=== PATIENT | female | born 1985 | race Caucasian/White ===

== ENCOUNTER 2018-06-29 06:17 | Inpatient (IN) | payer OTHER ==
[2018-06-29] VITALS (29 sets, daily range): BP systolic 100–152; BP diastolic 62–103; PULSE 65–114; RESP 10–21; Ht 167.6 cm; Wt 72.6 kg
[~2018-06-29] VITALS: Ht 167.6 cm; Wt 72.6 kg
[~2018-06-29 06:17] MED LIST: ACET500C5 PO; CLIN300C10 PO; HYDR-4011 PO; IBUP-1542 PO
[2018-06-29] MEDS ORDERED: POLYMYXIN/BACITRACIN 1L IRRIG ONE ×2 (06:54→11:55)
[2018-06-29] MEDS ORDERED: NEOMYC/POLYMYX/BACIT 30 GM OINT ONE (06:54)
[2018-06-29] MEDS ORDERED: ROPIVACAINE 0.5 % 30 ML VIAL ONE ×2 (06:54→07:33)
[2018-06-29] MEDS ORDERED: BUSP10TA2 PO (07:01)
[2018-06-29] MEDS ORDERED: CYCL10TA7 PO (07:02)
[2018-06-29] MEDS ORDERED: SUGAMMADEX SODIUM 200 MG/2 ML VIAL IV ONE (07:26)
[2018-06-29] MEDS ORDERED: PROPOFOL 20 ML ONE (07:27)
[2018-06-29] MEDS ORDERED: ROCURONIUM 50 MG INJ ONE (07:27)
[2018-06-29] MEDS ORDERED: NEOSTIGMINE 3 MG/3 ML SYRINGE ONE (07:27)
[2018-06-29] MEDS ORDERED: CEFAZOLIN 1 GM INJ ONE (07:27)
[2018-06-29] MEDS ORDERED: GLYCOPYRROLATE 0.4 MG INJ ONE (07:27)
[2018-06-29] MEDS ORDERED: DEXAMETHASONE 4 MG/ML 5 ML INJ ONE (07:30)
[2018-06-29] MEDS ORDERED: MIDAZOLAM 1 MG/ML 2 ML INJ ONE (07:30)
[2018-06-29] MEDS ORDERED: ONDANSETRON 4 MG INJ ONE (07:30)
[2018-06-29] MEDS ORDERED: FENTAnyl 50 MCG/ML VIAL ONE (07:30)
--- NOTE | 2018-06-29 07:33 | PREAC ---
Date/Time of Note Date/Time of Note DATE: 06/29/18 TIME: 07:32 Anesthesia Eval and Record Evaluation Time Pre-Procedure Interview DATE: 06/29/18 TIME: 07:32 Age 32 Sex female NPO: 8 hrs Preoperative diagnosis LEFT ANKLE DISTAL TIBIAL PILON AND FIBULA FRACTURE Planned procedure LEFT ANKLE SHARMILA, ORIF TIBIAL PILON AND FIBULA Past Medical History Past Medical History: Includes Pulm: Asthma Psych: Anxiety Infection(s): Hep C Recreational drugs: Marijuana, Heroin Surgery & Anesthesia Issues No known issue Meds Anticoagulation: No Beta Narcisa within 24 hr: No Reason Beta Narcisa not given: Pt. not on B-Narcisa Reported Medications Cyclobenzaprine Hcl* (Cyclobenzaprine Hcl*) 10 Mg Tablet, 10 MG PO QHS PRN for MUSCLE SPASMS, #60 TAB 06/29/18 Buspirone Hcl* (Buspirone Hcl*) 10 Mg Tab, 10 MG PO BID, TAB 06/29/18 Discontinued Scripts Acetaminophen* (Tylophen*) 500 Mg Capsule, 1 CAP PO Q6H PRN for PAIN AND OR ELEVATED TEMP, #30 CAP Prov:JEANETTE NIETO PA-C 02/02/16 Ibuprofen* (Motrin*) 600 Mg Tab, 600 MG PO Q6, #30 TAB Prov:JEANETTE NIETO PA-C 02/02/16 Ibuprofen* (Motrin*) 600 Mg Tab, 600 MG PO Q6, #20 TAB Prov:LISA QIU PA-C 12/14/15 Clindamycin Hcl* (Clindamycin Hcl*) 300 Mg Capsule, 300 MG PO TID for 10 Days, CAP Prov:LISA QIU PA-C 12/14/15 Hydrocodone/Acetaminophen ([place] 5-325 Tablet) 1 Each Tablet, 1 TAB PO Q6H PRN for PAIN, #5 TAB Prov:TRAVIS DECKER NP 10/30/15 Meds reviewed: Yes Allergies Coded Allergies: No Known Allergy (Unverified , 06/29/18) Allergies Reviewed: Yes Labs/Studies Labs Reviewed: Reviewed by anesthesiologist test: Negative Pre-procedure Exam Airway: Adequate mouth opening, Adequate thyromental dist Mallampati: Mallampati II Teeth: Normal Lung: Normal Heart: Normal ASA Physical Status ASA physical status: 2 Emergency: None Planned Anesthetic General/MAC: ETT Nerve block: Sciatic (left) Planned Pain Management Single shot nerve block, Parenteral pain med Pre-operative Attestations Prior to commencing anesthesia and surgery, the patient was re-evaluated, there was verification of: *The patient's identity *The results of appropriate recent lab work and preoperative vital signs *The above evaluation not changing prior to induction *Anesthetic plan, risk benefits, alternative and complications discussed with patient/family; questions answered; patient/family understands, accepts and wishes to proceed. Ramakrishna Diaz M.D. June 29, 2018 07:33
[2018-06-29] MEDS ORDERED: CEFAZOLIN 1 GM INJ IV SCH (08:00)
[2018-06-29] MEDS ORDERED: HYDROmorphONE 1 MG/ML SYG IV PRN ×2 (08:00→17:00)
[2018-06-29] MEDS: CEFAZOLIN 1 GM/50 ML (PMX) 50 ML IVPB SCH ×2 (08:00→17:03)
[2018-06-29] MEDS ORDERED: ONDANSETRON 4 MG INJ IV PRN ×2 (08:00→09:00)
[2018-06-29] MEDS ORDERED: oxyCODONE 5 MG TAB PO PRN (08:00)
--- NOTE | 2018-06-29 08:00 | HPN ---
Date/Time of Note Date/Time of Note DATE: 06/29/18 TIME: 07:59 Interval H&P Admission Note Pt. seen H&P reviewed: No system changes DC GROVES MD June 29, 2018 07:59
[2018-06-29] MEDS ORDERED: HYDROmorphONE 1 MG/5 ML IV SYRINGE IV PRN ×2 (09:00)
[2018-06-29] MEDS ORDERED: MIDAZOLAM 1 MG/ML 2 ML INJ IV PRN (09:00)
[2018-06-29] MEDS ORDERED: DIPHENHYDRAMINE 50 MG INJ IV PRN (09:00)
[2018-06-29] MEDS ORDERED: hydrALAzine 20 MG INJ IV PRN (09:00)
[2018-06-29] MEDS ORDERED: TRIMETHOBENZAMIDE 100 MG/ML VIAL IM PRN (09:00)
[2018-06-29] MEDS ORDERED: OXYCODONE/ACETAMINOPHEN (5/325) TAB PO PRN ×2 (09:00)
[2018-06-29] MEDS: GABAPENTIN 300 MG CAP PO SCH ×3 (09:00→21:57)
[2018-06-29] MEDS ORDERED: FENTAnyl 50 MCG/ML VIAL IV PRN ×3 (09:00)
[2018-06-29] MEDS ORDERED: EPHEDrine 25 MG/5 ML SYG IV PRN (09:00)
[2018-06-29] MEDS ORDERED: MEPERIDINE 25 MG INJ IV PRN (09:00)
[2018-06-29] MEDS ORDERED: LABETALOL HCL 20MG INJ IV PRN (09:00)
[2018-06-29] MEDS ORDERED: ALBUTEROL 0.083% (NEB) 2.5 MG/3 ML AMP HHN PRN (09:00)
[2018-06-29] MEDS ORDERED: IPRATROPIUM (NEB) 0.5 MG/2.5 ML AMP HHN PRN (09:00)
--- NOTE | 2018-06-29 12:28 | QN ---
Documentation Job number: [id number].... DC GROVES MD June 29, 2018 12:28
--- NOTE | 2018-06-29 12:39 | PAC ---
Date/Time of Note Date/Time of Note DATE: 06/29/18 TIME: 12:39 Post-Anesthesia Notes Post-Anesthesia Note Last documented vital signs Vital Signs Date Temp Pulse Resp B/P (MAP) Pulse Ox O2 O2 Flow FiO2 Time Delivery Rate 06/29/18 98.5 84 18 100/80 98 Room Air 07:29 (87) Activity: WNL Respiratory function: WNL Cardiovascular function: WNL Mental status: Baseline Pain reasonably controlled: Yes Hydration appropriate: Yes Nausea/Vomiting absent: Yes Ramakrishna Diaz M.D. June 29, 2018 12:39
[2018-06-29] MEDS: HYDROmorphONE 1 MG/5 ML IV SYRINGE IV PRN ×3 (13:01→13:14)
--- NOTE | 2018-06-29 14:23 | OPR ---
DATE OF OPERATION: 06/29/2018 PREOPERATIVE DIAGNOSES: 1. Left distal tibial pilon fracture and fibular fracture. 2. Left ankle painful hardware. POSTOPERATIVE DIAGNOSES: 1. Left distal tibial pilon fracture and fibular fracture. 2. Left ankle painful hardware. OPERATION PERFORMED: 1. Left ankle open reduction internal fixation of distal tibial pilon fracture and distal fibular fracture. 2. Application of allograft. 3. Application of incisional wound VAC. 4. Left ankle removal of hardware. SURGEON: Augie Cooper MD HOUSEHOLD WORKER: None. ANESTHESIOLOGIST: Dr. Diaz. ANESTHESIA: General with popliteal and adductor block. TOURNIQUET TIME: Tourniquet time was 84 minutes at 250 mmHg mercury, then brought down for 35 minutes and brought up again for another 74 minutes at 250 mmHg. ESTIMATED BLOOD LOSS: Minimal. TRANSFUSION: None. COMPLICATIONS: None. SPECIMENS: None. IMPLANTS: 1. Arthrex Amnion allograft. 2. Arthrex Flores. 3. Arthrex distal pilon locking plate. 4. [employer]hew EVOS 2.0 mini-frag plate and screws. DRAINS: A Prevena incisional wound VAC Duo 13 cm. PATIENT CONDITION UPON PROCEDURE: Stable. DISPOSITION: To PACU. INDICATIONS: The patient is 32-year-old female who was seen with distal tibial pilon and fibular fracture approximately 4 weeks ago. The patient was indicated for surgery given the displacement of the fracture as well as annabelle-implant fracture pattern. Risk Note: Patient was explained the risks and benefits of surgery and the patient's huslia language including not limited to infection, bleeding, injury to blood vessels, nerves, ligaments or tendons. Risks of anesthesia, deep vein thrombosis and need for reduce future surgery. Patient acknowledged these risk by signing the surgical consent form. PROCEDURE: The patient was met in the preoperative holding area, extremity was marked. Patient had signed consent and confirmed with the correct operative extremity correct procedure. The patient was brought to the operative theater and placed on the operative supine on operative table, given preoperative antibiotics and preoperative anesthesia and flipped into the prone position with all bony prominences well padded. Timeout was taken and all parties room agreed this was the correct patient, extremity and procedure. Tourniquet was brought to 250 mmHg and incision was made over the medial malleolus. The distal medial malleolar screws were removed over the previous plate. Attention was then turned to the posterior lateral ankle were incision was made between the Achilles and the peroneal tendons. All neurovascular structures were identified and protected and then the incision was brought down to the FHL fascia which was identified. The FHL was identified and retracted medially. Fracture pattern was identified and then hematoma and callus was removed. Fracture was then reduced and then a posterior malleolar distal pilon locking plate was then placed with the apex just proximal to the tip of the fracture and then in a buttress like fashion antiglide reduction was attempted and ankle fracture was reduced and shown to be in appropriate position on lateral x-ray. Screws were then placed, both proximally, as well as locking screws distally and shown to be well reduced position both in AP, lateral and oblique fluoroscopy. Wound was irrigated thoroughly and then amniotic membrane was placed over the fracture pattern to assist with fracture healing and wound healing and closed in layers with 2-0 Vicryl, followed by 3-0 Monocryl and 4-0 nylon in a vertical mattress fashion. The medial incision was then closed with a 3-0 running nylon. The patient was then wrapped up and all draping was taken down and patient flipped from prone to supine position and then patient was re-prepped and draped in another timeout was taken. The tourniquet was brought up to 250 mmHg again, after approximately 35 minutes and an incision was made over the medial malleolus brought out over the medial malleolus and brought down to the comminuted fracture pattern. The fracture was quite comminuted over the medial gutter and reduced accordingly and then held in place with K-wires and then a 2- 0 locking plate was then placed over the anterior medial ankle fracture and then fixed proximally and distally. At this time the medial gutter was irrigated thoroughly and cleaned out thoroughly. However, there was a small comminuted fracture noted over the medial talar dome that was irreparable and that was irrigated again thoroughly as well. The remainder of the fracture was reduced, held in place with K-wires. We then tested and protected the ankle with fluoroscopic x-ray with external rotation stress showed no evidence of medial clear space widening. The posterior tibial tendon was then retracted and then 4 K wires were placed over the comminuted fracture piece outside of the skin and plate and screws. The ankle was shown to be be in a well-reduced position both in AP and lateral x-ray. The fibula fracture was shown to be out to excellent length and alignment and rotation. We decided to be treated without any plates and screws at this time. The wound was irrigated thoroughly and then it was closed in layers with 2-0 Vicryl followed by a 3-0 Monocryl and 3-0 nylon in a vertical mattress fashion. A Prevena wound VAC was placed over the medial and lateral incision and then placed in a well-padded short leg splint in neutral position. At the end of the case, all sponge and needle counts were correct. The patient was placed in the PACU in a stable condition with the toes well perfused. Dictated By: AUGIE ROJAS/NTS Conf#: [id number] DID#: [id number] MTDD
[2018-06-29] MEDS ORDERED: HYDROmorphONE 1 MG/ML SYG IV ONE (17:00)
[2018-06-29] MEDS: NICOTINE (14 MG/24 HR) PATCH TRANSDERM SCH (18:14)
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
[2018-06-29] MEDS ORDERED: LORAZEPAM 2 MG INJ IV PRN (19:30)
[2018-06-29] MEDS ORDERED: METHADONE (1 MG/ML 5 ML PO UD SYG) PO SCH (19:30)
[2018-06-29] MEDS ORDERED: HYDROmorphONE 0.2 MG/ML PCA IV SCH (19:30)
[2018-06-29] MEDS: HYDROmorphONE 2 MG/ML SYG IV PRN (20:27)
[2018-06-29] MEDS: QUETIAPINE 25 MG TAB PO SCH (21:00)
[2018-06-30] MEDS: CEFAZOLIN 1 GM/50 ML (PMX) 50 ML IVPB SCH ×4 (00:26→23:55)
[2018-06-30 00:31] VITALS: BP 89/49; PULSE 96; RESP 18
[2018-06-30] MEDS: METHADONE (1 MG/ML 5 ML PO UD SYG) PO SCH ×4 (05:54→23:55)
[2018-06-30] MEDS: HYDROmorphONE 2 MG/ML SYG IV PRN ×3 (06:03→11:57)
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
[2018-06-30 08:30] VITALS: BP 100/57; PULSE 95; RESP 18
[2018-06-30] MEDS: MULTIVITAMINS 10 ML, THIAMINE 100 MG, FOLIC ACID 1 MG in SOD CHLORIDE 0.9% 1,000 ML IVPB SCH (08:59)
[2018-06-30] MEDS: GABAPENTIN 300 MG CAP PO SCH ×3 (08:59→22:27)
[2018-06-30] MEDS: QUETIAPINE 25 MG TAB PO SCH ×2 (09:00→22:27)
[2018-06-30] MEDS: NICOTINE (14 MG/24 HR) PATCH TRANSDERM SCH (09:01)
--- NOTE | 2018-06-30 12:14 | CONS ---
Assessment/Plan Assessment/Plan Hospital Course (Demo Recall) Summary Assessment and Plan: Assessment: Hepatitis C, untreated Polysubstance abuse (Meth, Heroin) Left distal tibial pilon fracture and fibular fracture -status post left ankle ORIF 06/29/18 Plan: Hepatitis RNA/genotype CBC, CMP, INR, abd us Patient will need to f/u after discharge to begin treatment for Hepatitis C likely [place] 8-12 weeks pending on cirrhosis Patient being followed by Dr. Chavez for pain management Patient seen in collaboration with Dr. Ochoa CC: RUBY OCHOA MD ; Consultation Date/Type/Reason Admit Date/Time June 29, 2018 at 08:00 Date of Consultation: June 30, 2018 Type of Consult GI Reason for Consultation Hepatitis C Date/Time of Note DATE: 06/30/18 TIME: 11:50 Hx of Present Illness This is a 32-year-old female with past medical history of hepatitis C, untreated, polysubstance abuse i.e. methamphetamine/heroin. Who was admitted for elective left ankle open reduction and internal fixation as well as removal of prior hardware. Status post surgery 06/29/2018. Has been consulted to address hepatitis C. Patient notes her also has hepatitis C she previously had a plan of action for treatment however did not follow through and at this time remains treatment esme. Hepatitis antibody is positive we will additionally order RNA and serology as well as abdominal ultrasound. Further work-up will be needed as an outpatient including FibroScan to determine type and length of medication treatment. Review of Systems: [A 12 system, review was conducted and is negative except as noted in the HPI or here.] Past Medical History Medical History: no pertinent history, other (Hepatitis C) Home Meds Reported Medications Cyclobenzaprine Hcl* (Cyclobenzaprine Hcl*) 10 Mg Tablet, 10 MG PO QHS PRN for MUSCLE SPASMS, #60 TAB 06/29/18 Buspirone Hcl* (Buspirone Hcl*) 10 Mg Tab, 10 MG PO BID, TAB 06/29/18 Discontinued Scripts Acetaminophen* (Tylophen*) 500 Mg Capsule, 1 CAP PO Q6H PRN for PAIN AND OR ELEVATED TEMP, #30 CAP Prov:JEANETTE NIETO PA-C 02/02/16 Ibuprofen* (Motrin*) 600 Mg Tab, 600 MG PO Q6, #30 TAB Prov:PROUSE,JEANETTE M. PA-C 02/02/16 Ibuprofen* (Motrin*) 600 Mg Tab, 600 MG PO Q6, #20 TAB Prov:LISA QIU PA-C 12/14/15 Clindamycin Hcl* (Clindamycin Hcl*) 300 Mg Capsule, 300 MG PO TID for 10 Days, CAP Prov:LISA QIU PA-C 12/14/15 Hydrocodone/Acetaminophen ([place] 5-325 Tablet) 1 Each Tablet, 1 TAB PO Q6H PRN for PAIN, #5 TAB Prov:TRAVIS DECKER NP 10/30/15 Medications Current Medications Ondansetron HCl (Zofran Inj) 4 mg Q4H PRN IV NAUSEA AND/OR VOMITING; Start 06/29/18 at 08:00 Diphenhydramine HCl (Benadryl) 25 mg Q4H PRN PO ITCHING; Start 06/29/18 at 08:00 Rivaroxaban (Xarelto) 10 mg WITH DINNER PO ; Start 06/30/18 at 17:55 Acetaminophen (Tylenol Tab) 325 mg Q4H PRN PO MILD PAIN(1-3)OR ELEVATED TEMP; Start 06/29/18 at 08:00 Gabapentin (Neurontin) 600 mg TID PO Last administered on 06/30/18at 08:59; Admin Dose 600 MG; Start 06/29/18 at 09:00 Cefazolin Sodium 50 ml @ 100 mls/hr Q8H IVPB Last administered on 06/30/18at 08:12; Admin Dose 100 MLS/HR; Start 06/29/18 at 08:00; Stop 07/01/18 at 00:29 Nicotine (Nicoderm 14 Mg/ 24hr) 1 patch DAILY TRANSDERM Last administered on 06/30/18at 09:01; Admin Dose 1 PATCH; Start 06/29/18 at 18:00 Hydromorphone HCl (Dilaudid REVOLVING FIELD ASSEMBLER) 0.3 MG/HR CONTINUOUS RATE ... Q4PCA IV Last administered on 06/29/18at 22:10; Admin Dose 6 MG; Start 06/29/18 at 19:30 Hydromorphone HCl (Dilaudid) 2 mg Q3H PRN IV SEVERE PAIN LEVEL 7-10 Last administered on 06/30/18at 09:00; Admin Dose 2 MG; Start 06/29/18 at 19:30 Lorazepam (Ativan) 1 mg Q6H PRN IV ANXIETY Last administered on 06/30/18at 09:05; Admin Dose 1 MG; Start 06/29/18 at 19:30 Quetiapine Fumarate (Seroquel) 25 mg DAILY PO Last administered on 06/30/18at 0 9:00; Admin Dose 25 MG; Start 06/30/18 at 09:00 Quetiapine Fumarate (Seroquel) 50 mg HS PO ; Start 06/29/18 at 21:00 Multivitamins 10 ml/Thiamine HCl 100 mg/Folic Acid 1 mg/Sodium Chloride 1,011.2 ml @ 125 mls/ hr DAILY@09 IVPB Last administered on 06/30/18at 08:59; Admin Dose 125 MLS/HR; Start 06/30/18 at 09:00 Methadone HCl (Methadone Liq) 3 mg Q6 PO Last administered on 06/30/18at 05:54; Admin Dose 3 MG; Start 06/30/18 at 06:00 Allergies: Coded Allergies: No Known Allergy (Unverified , 06/29/18) Social History Alcohol Use: heavy Smoking Status: Current every day smoker Drug Use: cocaine, heroin, other (Meth) Exam/Review of Systems Exam Vitals Vital Signs Date Temp Pulse Resp B/P (MAP) Pulse Ox O2 O2 Flow FiO2 Time Delivery Rate 06/30/18 18 09:00 06/30/18 98.9 95 100/57 95 Nasal 08:30 (71) Cannula 06/29/18 2.0 19:57 Intake and Output 06/29/18 06/29/18 06/30/18 1515:00 23:00 07:00 IntakeIntake Total 2100 ml 50 ml OutputOutput Total 525 ml BalanceBalance 1575 ml 50 ml Exam PHYSICAL EXAMINATION: GENERAL: Alert & oriented x 3, agitated SKIN: No lesions. HEAD: Normocephalic, atraumatic, no tenderness. EYES: Pupils equal reactive to light and accommodation, full extraocular movements, sclera clear, non-icteric, no discharge. EARS/NOSE AND THROAT: Ears normal, nose normal. NECK: Supple, no masses CHEST: Inspection within normal limits. CARDIOVASCULAR: Heart: Regular rate and rhythm RESPIRATORY: Lungs clear to auscultation GASTROINTESTINAL AND LIVER: Abdomen: Soft, non tenderness, non-distended, no hernias, no masses, no organomegaly, no ascites, no guarding, no rebound tenderness, normoactive bowel sounds. Rectal: Deferred. EXTREMITIES: Dressing to LLE Results Results 24hrs Laboratory Tests Test 06/29/18 12:56 06/30/18 08:18 Hepatitis B Surface Antigen NEGATIVE Hepatitis C Antibody REACTIVE H HIV (1&2) Antibody NEGATIVE Lab Scanned Report REFERENCE LAB Medications Medication Current Medications Ondansetron HCl (Zofran Inj) 4 mg Q4H PRN IV NAUSEA AND/OR VOMITING; Start 06/29/18 at 08:00 Diphenhydramine HCl (Benadryl) 25 mg Q4H PRN PO ITCHING; Start 06/29/18 at 08:00 Rivaroxaban (Xarelto) 10 mg WITH DINNER PO ; Start 06/30/18 at 17:55 Acetaminophen (Tylenol Tab) 325 mg Q4H PRN PO MILD PAIN(1-3)OR ELEVATED TEMP; Start 06/29/18 at 08:00 Gabapentin (Neurontin) 600 mg TID PO Last administered on 06/30/18at 08:59; Admin Dose 600 MG; Start 06/29/18 at 09:00 Cefazolin Sodium 50 ml @ 100 mls/hr Q8H IVPB Last administered on 06/30/18at 08:12; Admin Dose 100 MLS/HR; Start 06/29/18 at 08:00; Stop 07/01/18 at 00:29 Nicotine (Nicoderm 14 Mg/ 24hr) 1 patch DAILY TRANSDERM Last administered on 06/30/18at 09:01; Admin Dose 1 PATCH; Start 06/29/18 at 18:00 Hydromorphone HCl (Dilaudid REVOLVING FIELD ASSEMBLER) 0.3 MG/HR CONTINUOUS RATE ... Q4PCA IV Last administered on 06/29/18 22:10; Admin Dose 6 MG; Start 06/29/18 at 19:30 Hydromorphone HCl (Dilaudid) 2 mg Q3H PRN IV SEVERE PAIN LEVEL 7-10 Last administered on 06/30/18 09:00; Admin Dose 2 MG; Start 06/29/18 at 19:30 Lorazepam (Ativan) 1 mg Q6H PRN IV ANXIETY Last administered on 5/21/19at 09:05; Admin Dose 1 MG; Start 06/29/18 at 19:30 Quetiapine Fumarate (Seroquel) 25 mg DAILY PO Last administered on 06/30/18at 09:00; Admin Dose 25 MG; Start 06/30/18 at 09:00 Quetiapine Fumarate (Seroquel) 50 mg HS PO ; Start 06/29/18 at 21:00 Multivitamins 10 ml/Thiamine HCl 100 mg/Folic Acid 1 mg/Sodium Chloride 1,011.2 ml @ 125 mls/ hr DAILY@09 IVPB Last administered on 06/30/18at 08:59; Admin Dose 125 MLS/HR; Start 06/30/18 at 09:00 Methadone HCl (Methadone Liq) 3 mg Q6 PO Last administered on 06/30/18at 05:54; Admin Dose 3 MG; Start 06/30/18 at 06:00 JENNIFER MCKEON June 30, 2018 12:02
[2018-06-30] MEDS: ACETAMINOPHEN 325 MG TAB PO PRN (13:34)
--- NOTE | 2018-06-30 14:18 | CONS ---
Assessment/Plan Assessment/Plan Assessment/Plan (Daily) Heroin abuse Methamphetamine abuse Excessive alcohol consumption There is a possibility patient used drugs once again this morning she displays more findings consistent with being on speed than opioids. With nurses in the room we have made a deal with her to make some slight increases in her pain control medications and I have adjusted her benzodiazepines. I have asked her permission to hold on any visitors she is refused. We will continue to support her try and palliate her erratic emotions and behavior at this time so she does not sign out AGAINST MEDICAL ADVICE. Consultation Date/Type/Reason Admit Date/Time June 30, 2018 at 10:03 Initial Consult Date 06/30/18 Date/Time of Note DATE: 06/30/18 TIME: 14:13 24 HR Interval Summary Free Text/Dictation Medical records notes from the night patient had an unremarkable evening slept well did not complain of pain out of control. This morning she is demanding higher doses of pain control medications stating that she was promised to have higher amounts and had more intervals. With 3 nurses in the room and sap security consultant I explained to her that this was not the case and that we had made a deal last night to continue with what I was ordering and not escalate her doses. Patient also disconnected herself earlier in the day from the VAC in the IV went to the bathroom with her purse. Of asked the nurses to asked patient's p ermission to check her belongings for any other drugs. Unfortunately it is obvious that patient is more hyper-vertebral than somnolent on pain control medications Exam/Review of Systems Exam Vitals Vital Signs Date Temp Pulse Resp B/P (MAP) Pulse Ox O2 O2 Flow FiO2 Time Delivery Rate 06/30/18 18 09:00 06/30/18 98.9 95 100/57 95 Nasal 08:30 (71) Cannula 06/29/18 2.0 19:57 Intake and Output 06/29/18 06/29/18 06/30/18 1515:00 23:00 07:00 IntakeIntake Total 2100 ml 50 ml OutputOutput Total 525 ml BalanceBalance 1575 ml 50 ml Constitutional: other (Shaky repeating her words confabulating) Psych: anxiety Head: normocephalic, atraumatic; No lacerations, No hematomas, No other Neurological: PIPELINES SUPERVISOR II-XII intact, other (Oriented x3 grossly on examination left arm shaking speaking rapidly flight of thoughts repetitive questions, moving all 4 extremities within normal limits) Results Result Diagram: 06/30/18 1231 06/30/18 1232 Results 24hrs Laboratory Tests Test 06/30/18 08:18 06/30/18 12:31 06/30/18 12:32 Lab Scanned Report REFERENCE LAB White Blood Count 8.1 Red Blood Count 3.58 L Hemoglobin 11.0 L Hematocrit 33.8 L Mean Corpuscular Volume 94.4 Mean Corpuscular Hemoglobin 30.7 Mean Corpuscular 32.5 Hemoglobin Concent Red Cell Distribution Width 13.4 Platelet Count 296 Mean Platelet Volume 9.5 Immature Granulocytes % 0.200 Neutrophils % 64.6 Lymphocytes % 23.9 Monocytes % 11.2 H Eosinophils % 0.0 Basophils % 0.1 Nucleated Red Blood Cells % 0.0 Immature Granulocytes # 0.020 Neutrophils # 5.2 Lymphocytes # 1.9 Monocytes # 0.9 Eosinophils # 0.0 Basophils # 0.0 Nucleated Red Blood Cells # 0.0 Prothrombin Time 12.5 Prothrombin Time Ratio 1.0 INR International 0.92 Normalized Ratio Sodium Level 140 Potassium Level 3.8 Chloride Level 107 Carbon Dioxide Level 26 Anion Gap 7 Blood Urea Nitrogen 9 Creatinine 0.53 Est Glomerular Filtrat > 60 Rate mL/min Glucose Level 97 Calcium Level 8.8 Total Bilirubin 0.7 Direct Bilirubin 0.00 Indirect Bilirubin 0.7 Aspartate Amino Transf (AST/SGOT) 24 Alanine 34 Aminotransferase (ALT/SGPT) Alkaline Phosphatase 61 Total Protein 6.4 Albumin 3.6 Globulin 2.80 Albumin/Globulin Ratio 1.28 Medications Medication Current Medications Ondansetron HCl (Zofran Inj) 4 mg Q4H PRN IV NAUSEA AND/OR VOMITING; Start 06/29/18 at 08:00 Diphenhydramine HCl (Benadryl) 25 mg Q4H PRN PO ITCHING; Start 06/29/18 at 08:00 Rivaroxaban (Xarelto) 10 mg WITH DINNER PO ; Start 06/30/18 at 17:55 Acetaminophen (Tylenol Tab) 325 mg Q4H PRN PO MILD PAIN(1-3)OR ELEVATED TEMP Last administered on 06/30/18at 13:34; Admin Dose 325 MG; Start 06/29/18 at 08:00 Gabapentin (Neurontin) 600 mg TID PO Last administered on 06/30/18 13:34; Admin Dose 600 MG; Start 06/29/18 at 09:00 Cefazolin Sodium 50 ml @ 100 mls/hr Q8H IVPB Last administered on 06/30/18 08:12; Admin Dose 100 MLS/HR; Start 06/29/18 at 08:00; Stop 07/01/18 at 00:29 Nicotine (Nicoderm 14 Mg/ 24hr) 1 patch DAILY TRANSDERM Last administered on 06/30/18 09:01; Admin Dose 1 PATCH; Start 06/29/18 at 18:00 Hydromorphone HCl (Dilaudid COLLECTION ANALYST) 0.3 MG/HR CONTINUOUS RATE ... Q4PCA IV Last ad ministered on 06/29/18 22:10; Admin Dose 6 MG; Start 06/29/18 at 19:30 Hydromorphone HCl (Dilaudid) 2 mg Q3H PRN IV SEVERE PAIN LEVEL 7-10 Last administered on 06/30/18 11:57; Admin Dose 2 MG; Start 06/29/18 at 19:30 Lorazepam (Ativan) 1 mg Q6H PRN IV ANXIETY Last administered on 06/30/18 09:05 ; Admin Dose 1 MG; Start 06/29/18 at 19:30 Quetiapine Fumarate (Seroquel) 25 mg DAILY PO Last administered on 06/30/18 09:00; Admin Dose 25 MG; Start 06/30/18 at 09:00 Quetiapine Fumarate (Seroquel) 50 mg HS PO ; Start 06/29/18 at 21:00 Multivitamins 10 ml/Thiamine HCl 100 mg/Folic Acid 1 mg/Sodium Chloride 1,011.2 ml @ 125 mls/ hr DAILY@09 IVPB Last administered on 06/30/18 08:59; Admin Dose 125 MLS/HR; Start 06/30/18 at 09:00 Methadone HCl (Methadone Liq) 3 mg Q6 PO Last administered on 06/30/18at 12:12; Admin Dose 3 MG; Start 06/30/18 at 06:00 DAVID GALLEGOS June 30, 2018 14:18
[2018-06-30] MEDS ORDERED: NALOXONE (0.4 MG/ML) INJ IV PRN (14:30)
[2018-06-30 15:20] VITALS: BP 123/70; PULSE 100; RESP 18
[2018-06-30] MEDS: HYDROmorphONE 0.2 MG/ML PCA IV SCH (17:10)
[2018-06-30] MEDS: RIVAROXABAN 10 MG TABLET PO SCH (17:55)
[2018-06-30] MEDS: LORAZEPAM 2 MG INJ IV PRN ×2 (17:56→22:36)
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
[2018-06-30 20:38] VITALS: BP 120/70; PULSE 98; RESP 18
[2018-06-30] MEDS: CHOLECALCIFEROL 2,000 UNIT CAP PO SCH (21:30)
[2018-06-30] MEDS: VITAMIN B COMPLEX/VIT C CAP PO SCH (22:35)
[2018-07-01] MEDS: HYDROmorphONE 0.2 MG/ML PCA IV SCH ×4 (00:40→23:51)
[2018-07-01 02:14] VITALS: BP 113/58; PULSE 90; RESP 18
[2018-07-01] MEDS: METHADONE (1 MG/ML 5 ML PO UD SYG) PO SCH ×3 (06:04→17:17)
[2018-07-01 07:30] VITALS: BP 112/57; PULSE 100; RESP 18
[2018-07-01] MEDS: MULTIVITAMINS 10 ML, THIAMINE 100 MG, FOLIC ACID 1 MG in SOD CHLORIDE 0.9% 1,000 ML IVPB SCH (08:20)
[2018-07-01] MEDS: GABAPENTIN 300 MG CAP PO SCH ×3 (08:20→19:37)
[2018-07-01] MEDS: VITAMIN B COMPLEX/VIT C CAP PO SCH (08:20)
[2018-07-01] MEDS: QUETIAPINE 25 MG TAB PO SCH ×2 (08:21→19:38)
[2018-07-01] MEDS: NICOTINE (14 MG/24 HR) PATCH TRANSDERM SCH (08:21)
[2018-07-01] MEDS: CHOLECALCIFEROL 2,000 UNIT CAP PO SCH (08:21)
--- NOTE | 2018-07-01 12:23 | PN ---
Date/Time of Note Date/Time of Note DATE: 06/30/18 TIME: 12:21 Assessment/Plan VTE Prophylaxis Risk score (from Ns)>0 risk: 5 SCD applied (from Nsg): Yes Pharmacological prophylaxis: rivaroxaban Lines/Catheters IV Catheter Type (from Nrsg): Peripheral IV Urinary Cath still in place: No Assessment/Plan Hospital Course 1. Left distal tibial pilon fracture and fibular fracture status post left ankle ORIF as well as removal of prior hardware and application of allograft and wound VAC postop day #1 Pain control, Dr. Lainez has been consulted for pain management, patient complaining of significant pain despite adequate narcotics Follow-up on Ortho recommendations Empiric antibiotics 2. History of hepatitis C GI consultation for treatment options 3. Polysubstance abuse with history of meth and heroin abuse HIV is negative Cessation Prophylaxis: Xarelto Result Diagram: 06/30/18 1231 06/30/18 1232 Results 24hrs Laboratory Tests Test 06/30/18 12:31 06/30/18 12:32 White Blood Count 8.1 Red Blood Count 3.58 L Hemoglobin 11.0 L Hematocrit 33.8 L Mean Corpuscular Volume 94.4 Mean Corpuscular Hemoglobin 30.7 Mean Corpuscular Hemoglobin Concent 32.5 Red Cell Distribution Width 13.4 Platelet Count 296 Mean Platelet Volume 9.5 Immature Granulocytes % 0.200 Neutrophils % 64.6 Lymphocytes % 23.9 Monocytes % 11.2 H Eosinophils % 0.0 Basophils % 0.1 Nucleated Red Blood Cells % 0.0 Immature Granulocytes # 0.020 Neutrophils # 5.2 Lymphocytes # 1.9 Monocytes # 0.9 Eosinophils # 0.0 Basophils # 0.0 Nucleated Red Blood Cells # 0.0 Prothrombin Time 12.5 Prothrombin Time Ratio 1.0 INR International Normalized Ratio 0.92 Sodium Level 140 Potassium Level 3.8 Chloride Level 107 Carbon Dioxide Level 26 Anion Gap 7 Blood Urea Nitrogen 9 Creatinine 0.53 Est Glomerular Filtrat Rate mL/min > 60 Glucose Level 97 Calcium Level 8.8 Total Bilirubin 0.7 Direct Bilirubin 0.00 Indirect Bilirubin 0.7 Aspartate Amino Transf (AST/SGOT) 24 Alanine Aminotransferase (ALT/SGPT) 34 Alkaline Phosphatase 61 Total Protein 6.4 Albumin 3.6 Globulin 2.80 Albumin/Globulin Ratio 1.28 Subjective 24 Hr Interval Summary Free Text/Dictation Late entry for 06/30/2018 Musculoskeletal: bone/joint pain Psychological: anxiety Exam/Review of Systems Exam Vitals Vital Signs Date Temp Pulse Resp B/P (MAP) Pulse Ox O2 O2 Flow FiO2 Time Delivery Rate 07/01/18 18 08:00 07/01/18 98.2 100 112/57 96 Room Air 07:30 (75) 07/01/18 2.0 02:14 Intake and Output 06/30/18 06/30/18 07/01/18 1515:00 23:00 07:00 IntakeIntake Total 850 ml 1991.2 ml 1280 ml OutputOutput Total 150 ml 500 ml BalanceBalance 850 ml 1841.2 ml 780 ml Constitutional: alert, oriented Respiratory: clear to auscultation Cardiovascular: regular rate and rhythm Gastrointestinal: soft; No distended Musculoskeletal: No nl extremities to inspection Results Results 24hrs Laboratory Tests Test 06/30/18 12:31 06/30/18 12:32 White Blood Count 8.1 Red Blood Count 3.58 L Hemoglobin 11.0 L Hematocrit 33.8 L Mean Corpuscular Volume 94.4 Mean Corpuscular Hemoglobin 30.7 Mean Corpuscular Hemoglobin Concent 32.5 Red Cell Distribution Width 13.4 Platelet Count 296 Mean Platelet Volume 9.5 Immature Granulocytes % 0.200 Neutrophils % 64.6 Lymphocytes % 23.9 Monocytes % 11.2 H Eosinophils % 0.0 Basophils % 0.1 Nucleated Red Blood Cells % 0.0 Immature Granulocytes # 0.020 Neutrophils # 5.2 Lymphocytes # 1.9 Monocytes # 0.9 Eosinophils # 0.0 Basophils # 0.0 Nucleated Red Blood Cells # 0.0 Prothrombin Time 12.5 Prothrombin Time Ratio 1.0 INR International Normalized Ratio 0.92 Sodium Level 140 Potassium Level 3.8 Chloride Level 107 Carbon Dioxide Level 26 Anion Gap 7 Blood Urea Nitrogen 9 Creatinine 0.53 Est Glomerular Filtrat Rate mL/min > 60 Glucose Level 97 Calcium Level 8.8 Total Bilirubin 0.7 Direct Bilirubin 0.00 Indirect Bilirubin 0.7 Aspartate Amino Transf (AST/SGOT) 24 Alanine Aminotransferase (ALT/SGPT) 34 Alkaline Phosphatase 61 Total Protein 6.4 Albumin 3.6 Globulin 2.80 Albumin/Globulin Ratio 1.28 Medications Medication Current Medications Ondansetron HCl (Zofran Inj) 4 mg Q4H PRN IV NAUSEA AND/OR VOMITING; Start 06/29/18 at 08:00 Diphenhydramine HCl (Benadryl) 25 mg Q4H PRN PO ITCHING; Start 06/29/18 at 08:00 Rivaroxaban (Xarelto) 10 mg WITH DINNER PO Last administered on 06/30/18 17:55; Admin Dose 10 MG; Start 06/30/18 at 17:55 Acetaminophen (Tylenol Tab) 325 mg Q4H PRN PO MILD PAIN(1-3)OR ELEVATED TEMP Last administered on 06/30/18 13:34; Admin Dose 325 MG; Start 06/29/18 at 08:00 Gabapentin (Neurontin) 600 mg TID PO Last administered on 07/01/18 08:20; Admin Dose 600 MG; Start 06/29/18 at 09:00 Nicotine (Nicoderm 14 Mg/ 24hr) 1 patch DAILY TRANSDERM Last administered on 07/01/18 08:21; Admin Dose 1 PATCH; Start 06/29/18 at 18:00 Quetiapine Fumarate (Seroquel) 25 mg DAILY PO Last administered on 07/01/18 08:21; Admin Dose 25 MG; Start 06/30/18 at 09:00 Quetiapine Fumarate (Seroquel) 50 mg HS PO Last administered on 06/30/18 22:27; Admin Dose 50 MG; Start 06/29/18 at 21:00 Multivitamins 10 ml/Thiamine HCl 100 mg/Folic Acid 1 mg/Sodium Chloride 1,011.2 ml @ 125 mls/ hr DAILY@09 IVPB Last administered on 07/01/18 08:20; Admin Dos e 125 MLS/HR; Start 06/30/18 at 09:00 Methadone HCl (Methadone Liq) 3 mg Q6 PO Last administered on 07/01/18 06:04; Admin Dose 3 MG; Start 06/30/18 at 06:00 Hydromorphone HCl (Dilaudid BUSINESS SYSTEMS ARCHITECT) 0.5 MG/HR CONTINUOUS R... Q4PCA IV Last administered on 07/01/18 08:22; Admin Dose 6 MG; Start 06/30/18 at 14:30 Lorazepam (Ativan) 1 mg Q4H PRN IV ANXIETY Last administered on 06/30/18 22:36; Admin Dose 1 MG; Start 06/30/18 at 14:30 Naloxone HCl (Narcan) 0.4 mg ONCE PRN IV SEDATION; Start 06/30/18 at 14:30; Stop 07/05/18 at 14:29 Cholecalciferol (Vitamin D) 10,000 unit DAILY PO Last administered on 07/01/18at 08:21; Admin Dose 10,000 UNIT; Start 06/30/18 at 21:30 Vitamin B Complex/ Vitamin C ([place]) 1 cap DAILY PO Last administered on 07/01/18at 08:20; Admin Dose 1 CAP; Start 06/30/18 at 21:30 TENZIN RANGEL July 01, 2018 12:23
--- NOTE | 2018-07-01 12:25 | PN ---
Date/Time of Note Date/Time of Note DATE: 07/01/18 TIME: 12:23 Assessment/Plan VTE Prophylaxis Risk score (from Ns)>0 risk: 5 SCD applied (from Nsg): Yes Pharmacological prophylaxis: rivaroxaban Lines/Catheters IV Catheter Type (from Nrsg): Peripheral IV Urinary Cath still in place: No Assessment/Plan Hospital Course 1. Left distal tibial pilon fracture and fibular fracture status post left ankle ORIF as well as removal of prior hardware and application of allograft and wound VAC postop day #2 Pain control, Dr. Lainez has been consulted for pain management, patient was given extra pain medications due to significant pain and hysteria but is now lethargic, decrease in pain regimen Follow-up on Ortho recommendations Status post empiric antibiotics 2. History of hepatitis C GI consultation for treatment options 3. Polysubstance abuse with history of meth and heroin abuse Suspected use in her hospital room, follow-up on toxicology HIV is negative Cessation Prophylaxis: Xarelto Result Diagram: 06/30/18 1231 06/30/18 1232 Results 24hrs Laboratory Tests Test 06/30/18 12:31 06/30/18 12:32 White Blood Count 8.1 Red Blood Count 3.58 L Hemoglobin 11.0 L Hematocrit 33.8 L Mean Corpuscular Volume 94.4 Mean Corpuscular Hemoglobin 30.7 Mean Corpuscular Hemoglobin Concent 32.5 Red Cell Distribution Width 13.4 Platelet Count 296 Mean Platelet Volume 9.5 Immature Granulocytes % 0.200 Neutrophils % 64.6 Lymphocytes % 23.9 Monocytes % 11.2 H Eosinophils % 0.0 Basophils % 0.1 Nucleated Red Blood Cells % 0.0 Immature Granulocytes # 0.020 Neutrophils # 5.2 Lymphocytes # 1.9 Monocytes # 0.9 Eosinophils # 0.0 Basophils # 0.0 Nucleated Red Blood Cells # 0.0 Prothrombin Time 12.5 Prothrombin Time Ratio 1.0 INR International Normalized Ratio 0.92 Sodium Level 140 Potassium Level 3.8 Chloride Level 107 Carbon Dioxide Level 26 Anion Gap 7 Blood Urea Nitrogen 9 Creatinine 0.53 Est Glomerular Filtrat Rate mL/min > 60 Glucose Level 97 Calcium Level 8.8 Total Bilirubin 0.7 Direct Bilirubin 0.00 Indirect Bilirubin 0.7 Aspartate Amino Transf (AST/SGOT) 24 Alanine Aminotransferase (ALT/SGPT) 34 Alkaline Phosphatase 61 Total Protein 6.4 Albumin 3.6 Globulin 2.80 Albumin/Globulin Ratio 1.28 Subjective 24 Hr Interval Summary Free Text/Dictation Patient is drowsy Exam/Review of Systems Exam Vitals Vital Signs Date Temp Pulse Resp B/P (MAP) Pulse Ox O2 O2 Flow FiO2 Time Delivery Rate 07/01/18 18 08:00 07/01/18 98.2 100 112/57 96 Room Air 07:30 (75) 07/01/18 2.0 02:14 Intake and Output 06/30/18 06/30/18 07/01/18 1515:00 23:00 07:00 IntakeIntake Total 850 ml 1991.2 ml 1280 ml OutputOutput Total 150 ml 500 ml BalanceBalance 850 ml 1841.2 ml 780 ml Constitutional: alert, other (Lethargic) Head: normocephalic Respiratory: clear to auscultation Cardiovascular: regular rate and rhythm Gastrointestinal: soft; No distended Musculoskeletal: No nl extremities to inspection Results Results 24hrs Laboratory Tests Test 06/30/18 12:31 06/30/18 12:32 White Blood Count 8.1 Red Blood Count 3.58 L Hemoglobin 11.0 L Hematocrit 33.8 L Mean Corpuscular Volume 94.4 Mean Corpuscular Hemoglobin 30.7 Mean Corpuscular Hemoglobin Concent 32.5 Red Cell Distribution Width 13.4 Platelet Count 296 Mean Platelet Volume 9.5 Immature Granulocytes % 0.200 Neutrophils % 64.6 Lymphocytes % 23.9 Monocytes % 11.2 H Eosinophils % 0.0 Basophils % 0.1 Nucleated Red Blood Cells % 0.0 Immature Granulocytes # 0.020 Neutrophils # 5.2 Lymphocytes # 1.9 Monocytes # 0.9 Eosinophils # 0.0 Basophils # 0.0 Nucleated Red Blood Cells # 0.0 Prothrombin Time 12.5 Prothrombin Time Ratio 1.0 INR International Normalized Ratio 0.92 Sodium Level 140 Potassium Level 3.8 Chloride Level 107 Carbon Dioxide Level 26 Anion Gap 7 Blood Urea Nitrogen 9 Creatinine 0.53 Est Glomerular Filtrat Rate mL/min > 60 Glucose Level 97 Calcium Level 8.8 Total Bilirubin 0.7 Direct Bilirubin 0.00 Indirect Bilirubin 0.7 Aspartate Amino Transf (AST/SGOT) 24 Alanine Aminotransferase (ALT/SGPT) 34 Alkaline Phosphatase 61 Total Protein 6.4 Albumin 3.6 Globulin 2.80 Albumin/Globulin Ratio 1.28 Medications Medication Current Medications Ondansetron HCl (Zofran Inj) 4 mg Q4H PRN IV NAUSEA AND/OR VOMITING; Start 06/29/18 at 08:00 Diphenhydramine HCl (Benadryl) 25 mg Q4H PRN PO ITCHING; Start 06/29/18 at 08:00 Rivaroxaban (Xarelto) 10 mg WITH DINNER PO Last administered on 06/30/18at 17: 55; Admin Dose 10 MG; Start 06/30/18 at 17:55 Acetaminophen (Tylenol Tab) 325 mg Q4H PRN PO MILD PAIN(1-3)OR ELEVATED TEMP Last administered on 06/30/18 13:34; Admin Dose 325 MG; Start 06/29/18 at 08:00 Gabapentin (Neurontin) 600 mg TID PO Last administered on 07/01/18 08:20; Admin Dose 600 MG; Start 06/29/18 at 09:00 Nicotine (Nicoderm 14 Mg/ 24hr) 1 patch DAILY TRANSDERM Last administered on 07/01/18 08:21; Admin Dose 1 PATCH; Start 06/29/18 at 18:00 Quetiapine Fumarate (Seroquel) 25 mg DAILY PO Last administered on 07/01/18 08:21; Admin Dose 25 MG; Start 06/30/18 at 09:00 Quetiapine Fumarate (Seroquel) 50 mg HS PO Last administered on 06/30/18 22:27; Admin Dose 50 MG; Start 06/29/18 at 21:00 Multivitamins 10 ml/Thiamine HCl 100 mg/Folic Acid 1 mg/Sodium Chloride 1,011.2 ml @ 125 mls/ hr DAILY@09 IVPB Last administered on 07/01/18 08:20; Admin Dose 125 MLS/HR; Start 06/30/18 at 09:00 Methadone HCl (Methadone Liq) 3 mg Q6 PO Last administered on 07/01/18 06:04; Admin Dose 3 MG; Start 06/30/18 at 06:00 Hydromorphone HCl (Dilaudid SINGLE SPINDLE SCREW MACHINE OPERATOR) 0.5 MG/HR CONTINUOUS R... Q4PCA IV Last administered on 07/01/18 08:22; Admin Dose 6 MG; Start 06/30/18 at 14:30 Lorazepam (Ativan) 1 mg Q4H PRN IV ANXIETY Last administered on 06/30/18at 22:36; Admin Dose 1 MG; Start 06/30/18 at 14:30 Naloxone HCl (Narcan) 0.4 mg ONCE PRN IV SEDATION; Start 06/30/18 at 14:30; Stop 07/05/18 at 14:29 Cholecalciferol (Vitamin D) 10,000 unit DAILY PO Last administered on 07/01/18at 08:21; Admin Dose 10,000 UNIT; Start 06/30/18 at 21:30 Vitamin B Complex/ Vitamin C (Berocca) 1 cap DAILY PO Last administered on 07/01/18at 08:20; Admin Dose 1 CAP; Start 06/30/18 at 21:30 TENZIN RANGEL July 01, 2018 12:25
--- NOTE | 2018-07-01 13:00 | PN ---
Date/Time of Note Date/Time of Note DATE: 07/01/18 TIME: 12:54 Assessment/Plan VTE Prophylaxis Risk score (from Nsg)>0 risk: 5 SCD applied (from Nsg): Yes Pharmacological prophylaxis: other (scds) Lines/Catheters IV Catheter Type (from Nrsg): Peripheral IV Urinary Cath still in place: No Assessment/Plan Hospital Course Summary Assessment and Plan: Assessment: Hepatitis C, untreated -Abd US- The liver demonstrates normal echogenicity. The liver is normal in size and no focal solid lesions are seen. Polysubstance abuse (Meth, Heroin) Left distal tibial fracture and fibular fracture -status post left ankle ORIF 06/29/18 Plan: Hepatitis RNA/genotype- pending Patient will need to f/u after discharge to begin treatment for Hepatitis C likely Mavyret 8-12 weeks pending on cirrhosis Patient being followed by Dr. Chavez for pain management Patient seen in collaboration with Dr. Ochoa Subjective: Course reviewed with nursing staff Patient interviewed and examined All labs, imaging and other results reviewed The patient currently sleeping, no over night events Will allow to sleep, at this time. PHYSICAL EXAMINATION: GENERAL: Alert & oriented SKIN: No lesions. HEAD: Normocephalic, atraumatic, no tenderness. EYES: Pupils equal reactive, no discharge. EARS/NOSE AND THROAT: Ears normal, nose normal. NECK: Supple, no masses CHEST: Inspection within normal limits. CARDIOVASCULAR: Heart: Regular rate and rhythm RESPIRATORY: Lungs clear to auscultation GASTROINTESTINAL AND LIVER: Abdomen: Soft, non tenderness, non-distended, no hernias, no masses, no organomegaly, no ascites, no guarding, no rebound tenderness, normoactive bowel sounds. Rectal: Deferred. EXTREMITIES: Dressing to LLE Result Diagram: 06/30/18 1231 06/30/18 1232 Exam/Review of Systems Exam Vitals Vital Signs Date Temp Pulse Resp B/P (MAP) Pulse Ox O2 O2 Flow FiO2 Time Delivery Rate 07/01/18 18 12:00 07/01/18 98.2 100 112/57 96 Room Air 07:30 (75) 07/01/18 2.0 02:14 Intake and Output 06/30/18 06/30/18 07/01/18 1515:00 23:00 07:00 IntakeIntake Total 850 ml 1991.2 ml 1280 ml OutputOutput Total 150 ml 500 ml BalanceBalance 850 ml 1841.2 ml 780 ml Medications Medication Current Medications Ondansetron HCl (Zofran Inj) 4 mg Q4H PRN IV NAUSEA AND/OR VOMITING; Start 06/29/18 at 08:00 Diphenhydramine HCl (Benadryl) 25 mg Q4H PRN PO ITCHING; Start 06/29/18 at 08:00 Rivaroxaban (Xarelto) 10 mg WITH DINNER PO Last administered on 06/30/18 17:55; Admin Dose 10 MG; Start 06/30/18 at 17:55 Acetaminophen (Tylenol Tab) 325 mg Q4H PRN PO MILD PAIN(1-3)OR ELEVATED TEMP Last administered on 06/30/18 13:34; Admin Dose 325 MG; Start 06/29/18 at 08:00 Gabapentin (Neurontin) 600 mg TID PO Last administered on 07/01/18 08:20; Admin Dose 600 MG; Start 06/29/18 at 09:00 Nicotine (Nicoderm 14 Mg/ 24hr) 1 patch DAILY TRANSDERM Last administered on 07/01/18 08:21; Admin Dose 1 PATCH; Start 06/29/18 at 18:00 Quetiapine Fumarate (Seroquel) 25 mg DAILY PO Last administered on 07/01/18 08:21; Admin Dose 25 MG; Start 06/30/18 at 09:00 Quetiapine Fumarate (Seroquel) 50 mg HS PO Last administered on 06/30/18 22:27; Admin Dose 50 MG; Start 06/29/18 at 21:00 Multivitamins 10 ml/Thiamine HCl 100 mg/Folic Acid 1 mg/Sodium Chloride 1,011.2 ml @ 125 mls/ hr DAILY@09 IVPB Last administered on 07/01/18 08:20; Admin Dos e 125 MLS/HR; Start 06/30/18 at 09:00 Methadone HCl (Methadone Liq) 3 mg Q6 PO Last administered on 07/01/18 06:04; Admin Dose 3 MG; Start 06/30/18 at 06:00 Hydromorphone HCl (Dilaudid TECHNICAL TESTING ENGINEER) 0.5 MG/HR CONTINUOUS R... Q4PCA IV Last administered on 07/01/18 08:22; Admin Dose 6 MG; Start 06/30/18 at 14:30 Lorazepam (Ativan) 1 mg Q4H PRN IV ANXIETY Last administered on 06/30/18at 22:36; Admin Dose 1 MG; Start 06/30/18 at 14:30 Naloxone HCl (Narcan) 0.4 mg ONCE PRN IV SEDATION; Start 06/30/18 at 14:30; Stop 07/05/18 at 14:29 Cholecalciferol (Vitamin D) 10,000 unit DAILY PO Last administered on 07/01/18 08:21; Admin Dose 10,000 UNIT; Start 06/30/18 at 21:30 Vitamin B Complex/ Vitamin C (Berocca) 1 cap DAILY PO Last administered on 07/01/18 08:20; Admin Dose 1 CAP; Start 06/30/18 at 21:30 JENNIFER MCKEON July 01, 2018 13:00
[2018-07-01 14:00] VITALS: BP 114/65; PULSE 107; RESP 20
[2018-07-01] MEDS: RIVAROXABAN 10 MG TABLET PO SCH (17:16)
[2018-07-01] MEDS: LORAZEPAM 2 MG INJ IV PRN (18:08)
[2018-07-01] MEDS: ACETAMINOPHEN 325 MG TAB PO PRN (19:37)
[2018-07-01] MEDS: DIPHENHYDRAMINE 25 MG CAP PO PRN (19:37)
[2018-07-01 20:00] VITALS: BP 121/68; PULSE 99; RESP 18
[2018-07-02] MEDS: METHADONE (1 MG/ML 5 ML PO UD SYG) PO SCH ×3 (00:25→13:18)
[2018-07-02] MEDS: LORAZEPAM 2 MG INJ IV PRN ×3 (02:08→19:57)
[2018-07-02 02:47] VITALS: BP 118/62; PULSE 98; RESP 18
[2018-07-02] MEDS: DIPHENHYDRAMINE 25 MG CAP PO PRN (04:30)
[2018-07-02 07:09] VITALS: BP 131/61; PULSE 102; RESP 17
[2018-07-02] MEDS: MULTIVITAMINS 10 ML, THIAMINE 100 MG, FOLIC ACID 1 MG in SOD CHLORIDE 0.9% 1,000 ML IVPB SCH (08:12)
[2018-07-02] MEDS: NICOTINE (14 MG/24 HR) PATCH TRANSDERM SCH (08:12)
[2018-07-02] MEDS: QUETIAPINE 25 MG TAB PO SCH ×2 (08:12→19:57)
[2018-07-02] MEDS: CHOLECALCIFEROL 2,000 UNIT CAP PO SCH (08:12)
[2018-07-02] MEDS: GABAPENTIN 300 MG CAP PO SCH ×3 (08:12→19:57)
[2018-07-02] MEDS: VITAMIN B COMPLEX/VIT C CAP PO SCH (08:12)
[2018-07-02] MEDS: HYDROmorphONE 0.2 MG/ML PCA IV SCH (08:20)
--- NOTE | 2018-07-02 11:02 | PN ---
Date/Time of Note Date/Time of Note DATE: 07/02/18 TIME: 11:02 Assessment/Plan Lines/Catheters IV Catheter Type (from Nrsg): Peripheral IV Casanova in Place (from Nrsg): No Assessment/Plan Assessment/Plan Postop day #3 status post left ankle tibial pilon and fibula open reduction internal fixation -Nonweightbearing to the left lower extremity - Dr Lainez for pain control - PCP mgmt of hep C - pt for GT - Social work/case mgmt consult for post op mgmt and home health - ok to MI home when cleared by Primary Medicine and Pain teams - Xarelto for DVT prophx for 6 weeks - encourage to be nicotine Free --- Godfrey Groves MD Subjective 24 Hr Interval Summary Patient is speaking in a frenzy tonight with patient feeling her pain is not adequately controlled Currently denies any fevers or chills or nausea vomiting. Exam/Review of Systems Vital Signs Vitals Vital Signs Date Temp Pulse Resp B/P (MAP) Pulse Ox O2 O2 Flow FiO2 Time Delivery Rate 07/07/18 99.1 104 18 117/69 98 04:26 (85) 07/03/18 Room Air 20:14 Intake and Output 07/06/18 07/06/18 07/07/18 1515:00 23:00 07:00 IntakeIntake Total 720 ml 400 ml 250 ml BalanceBalance 720 ml 400 ml 250 ml Exam Constitutional: alert, oriented, well developed Extremities: other (Left lower extremity-splint intact and bivalved with wound VAC intact. Toes wiggle and capillary refill is brisk. Toes are warm and well-perfused. Sensation intact light touch to the medial, lateral, dorsal and plantar, first dorsal webspace distribution) Results Result Diagram: 07/06/18 0700 07/06/18 0700 DC GROVES MD July 02, 2018 11:02
--- NOTE | 2018-07-02 11:06 | PN ---
Date/Time of Note Date/Time of Note DATE: 07/02/18 TIME: 11:04 Assessment/Plan VTE Prophylaxis Risk score (from Ns)>0 risk: 9 SCD applied (from Ns): Yes Pharmacological prophylaxis: other (scds) Lines/Catheters IV Catheter Type (from [facility]): Peripheral IV Urinary Cath still in place: No Assessment/Plan Hospital Course Summary Assessment and Plan: Assessment: Hepatitis C, untreated -Abd US- The liver demonstrates normal echogenicity. The liver is normal in size and no focal solid lesions are seen. -Positive Viral load Polysubstance abuse (Meth, Heroin) Left distal tibial fracture and fibular fracture -status post left ankle ORIF 06/29/18 Plan: Hepatitis C with positive viral load Patient will need to f/u after discharge to begin treatment for Hepatitis C likely Mavyret 8-12 weeks, we will need to complete fibrotest in office. GI will sign off at this time, but will be available upon reconsult as needed Patient seen in collaboration with Dr. Ochoa Subjective: Course reviewed with nursing staff Patient interviewed and examined All labs, imaging and other results reviewed Pt with sitter at bedside, clearly on pain medication. Currently no c/o n/v. Patient does c/o surgical pain PHYSICAL EXAMINATION: GENERAL: Alert & oriented SKIN: No lesions. HEAD: Normocephalic, atraumatic, no tenderness. EYES: Pupils equal reactive, no discharge. EARS/NOSE AND THROAT: Ears normal, nose normal. NECK: Supple, no masses CHEST: Inspection within normal limits. CARDIOVASCULAR: Heart: Regular rate and rhythm RESPIRATORY: Lungs clear to auscultation GASTROINTESTINAL AND LIVER: Abdomen: Soft, non tenderness, non-distended, no hernias, no masses, no organomegaly, no ascites, no guarding, no rebound tenderness, normoactive bowel sounds. Rectal: Deferred. EXTREMITIES: Dressing to LLE Result Diagram: 06/30/18 1231 06/30/18 1232 Results 24hrs Laboratory Tests Test 07/01/18 12:42 Urine Opiates Screen Positive Urine Barbiturates Negative Urine Amphetamines Screen Negative Urine Benzodiazepines Screen Negative Urine Cocaine Screen Negative Urine Cannabinoids Negative Exam/Review of Systems Exam Vitals Vital Signs Date Temp Pulse Resp B/P (MAP) Pulse Ox O2 O2 Flow FiO2 Time Delivery Rate 07/02/18 98.7 102 17 131/61 98 07:09 (84) 07/02/18 Nasal 02:47 Cannula 07/01/18 2.0 20:00 Intake and Output 07/01/18 07/01/18 07/02/18 1515:00 23:00 07:00 IntakeIntake Total 2211.2 ml OutputOutput Total 0 ml BalanceBalance 2211.2 ml 0 ml Results Results 24hrs Laboratory Tests Test 07/01/18 12:42 Urine Opiates Screen Positive Urine Barbiturates Negative Urine Amphetamines Screen Negative Urine Benzodiazepines Screen Negative Urine Cocaine Screen Negative Urine Cannabinoids Negative Medications Medication Current Medications Ondansetron HCl (Zofran Inj) 4 mg Q4H PRN IV NAUSEA AND/OR VOMITING; Start 06/29/18 at 08:00 Diphenhydramine HCl (Benadryl) 25 mg Q4H PRN PO ITCHING Last administered on 07/02/18at 04:30; Admin Dose 25 MG; Start 06/29/18 at 08:00 Rivaroxaban (Xarelto) 10 mg WITH DINNER PO Last administered on 07/01/18at 17:16; Admin Dose 10 MG; Start 06/30/18 at 17:55 Acetaminophen (Tylenol Tab) 325 mg Q4H PRN PO MILD PAIN(1-3)OR ELEVATED TEMP Last administered on 07/01/18 19:37; Admin Dose 325 MG; Start 06/29/18 at 08:00 Gabapentin (Neurontin) 600 mg TID PO Last administered on 07/02/18 08:12; Admin Dose 600 MG; Start 06/29/18 at 09:00 Nicotine (Nicoderm 14 Mg/ 24hr) 1 patch DAILY TRANSDERM Last administered on 07/02/18 08:12; Admin Dose 1 PATCH; Start 06/29/18 at 18:00 Quetiapine Fumarate (Seroquel) 25 mg DAILY PO Last administered on 07/02/18 08:12; Admin Dose 25 MG; Start 06/30/18 at 09:00 Quetiapine Fumarate (Seroquel) 50 mg HS PO Last administered on 07/01/18 19:38; Admin Dose 50 MG; Start 06/29/18 at 21:00 Multivitamins 10 ml/Thiamine HCl 100 mg/Folic Acid 1 mg/Sodium Chloride 1,011.2 ml @ 125 mls/ hr DAILY@09 IVPB Last administered on 07/02/18 08:12; Admin Dose 125 MLS/HR; Start 06/30/18 at 09:00 Methadone HCl (Methadone Liq) 3 mg Q6 PO Last administered on 07/02/18 06:04; Admin Dose 3 MG; Start 06/30/18 at 06:00 Hydromorphone HCl (Dilaudid TEST DESK OPERATOR) 0.5 MG/HR CONTINUOUS R... Q4PCA IV Last administered on 07/02/18 08:20; Admin Dose 6 MG; Start 06/30/18 at 14:30 Lorazepam (Ativan) 1 mg Q4H PRN IV ANXIETY Last administered on 07/02/18 05:29; Admin Dose 1 MG; Start 06/30/18 at 14:30 Naloxone HCl (Narcan) 0.4 mg ONCE PRN IV SEDATION; Start 06/30/18 at 14:30; Stop 07/05/18 at 14:29 Cholecalciferol (Vitamin D) 10,000 unit DAILY PO Last administered on 07/02/18 08:12; Admin Dose 10,000 UNIT; Start 06/30/18 at 21:30 Vitamin B Complex/ Vitamin C (Berocca) 1 cap DAILY PO Last administered on 07/02/18 08:12; Admin Dose 1 CAP; Start 06/30/18 at 21:30 JENNIFER MCKEON July 02, 2018 11:06
--- NOTE | 2018-07-02 11:55 | PSY ---
Date/Time of Note Date/Time of Note DATE: 07/02/18 TIME: 11:48 Psychiatric Subjective Eval Consent Pt consented to telemedicine: No Subjective Evaluation Patient location: inpatient History of present illness Patient is a 32-year-old female who is currently on the telemetry unit because of sustained injury to her left ankle . Patient is drowsy, states the Seroquel makes her sadated. She denies auditory hallucination, denies suicidal ideation, denies feeling depressed. She does not meet criteria for 5150 hold. Past psychiatric history No response Hospitalization: other (Denies) Medical history Problems Medical Problems: (1) Abscess of left eyelid Status: Acute (2) Back pain Status: Acute (3) Back pain Status: Acute (4) Injury of hand Status: Acute Allergies: Coded Allergies: No Known Allergy (Unverified , 06/29/18) Substance Abuse Substance use: other Substance abuse history: Yes Prior substance abuse treatmen: Yes (Long history of heroine, crystal meth and etoh abuse) Social History Marital status: other DPA/Conservatorship: No Psychiatric Objective Eval Review of Systems: Review of Systems: Not Applicable Physical Examination: Physical Examination: Not Applicable Appetite: Decreased Energy: Decreased Interest: Decreased Mental Status Examination: Eye Contact: Poor Psychomotor Activity: Slow Behavior: Other (Uncooperative. States the seroquel is making her sleepy) Speech: Soft AFFECT: Constricted Though Process: Linear Thought Content: Normal Orientation: x3 Insight: Intact Judgement: Intact Attention Span: Distractible Laboratory Results Laboratory Tests Test 06/30/18 12:31 06/30/18 12:32 07/01/18 12:42 White Blood Count 8.1 10^3/ul Red Blood Count 3.58 10^6/ul Hemoglobin 11.0 g/dl Hematocrit 33.8 % Mean Corpuscular Volume 94.4 fl Mean Corpuscular Hemoglobin 30.7 pg Mean Corpuscular 32.5 g/dl Hemoglobin Concent Red Cell Distribution Width 13.4 % Platelet Count 296 10^3/UL Mean Platelet Volume 9.5 fl Immature Granulocytes % 0.200 % Neutrophils % 64.6 % Lymphocytes % 23.9 % Monocytes % 11.2 % Eosinophils % 0.0 % Basophils % 0.1 % Nucleated Red Blood Cells % 0.0 /100WBC Immature Granulocytes # 0.020 10^3/ul Neutrophils # 5.2 10^3/ul Lymphocytes # 1.9 10^3/ul Monocytes # 0.9 10^3/ul Eosinophils # 0.0 10^3/ul Basophils # 0.0 10^3/ul Nucleated Red Blood Cells # 0.0 10^3/ul Prothrombin Time 12.5 Sec Prothrombin Time Ratio 1.0 INR International Normalized Ratio 0.92 Sodium Level 140 mmol/L Potassium Level 3.8 mmol/L Chloride Level 107 mmol/L Carbon Dioxide Level 26 mmol/L Anion Gap 7 Blood Urea Nitrogen 9 mg/dl Creatinine 0.53 mg/dl Est Glomerular Filtrat Rate mL/min > 60 mL/min Glucose Level 97 mg/dl Calcium Level 8.8 mg/dl Total Bilirubin 0.7 mg/dl Direct Bilirubin 0.00 mg/dl Indirect Bilirubin 0.7 mg/dl Aspartate Amino Transf (AST/SGOT) 24 IU/L Alanine 34 IU/L Aminotransferase (ALT/SGPT) Alkaline Phosphatase 61 IU/L Total Protein 6.4 g/dl Albumin 3.6 g/dl Globulin 2.80 g/dl Albumin/Globulin Ratio 1.28 Urine Opiates Screen Positive Urine Barbiturates Negative Urine Amphetamines Screen Negative Urine Benzodiazepines Screen Negative Urine Cocaine Screen Negative Urine Cannabinoids Negative Assessment and Plan Recommendation/Plan Medication Management Discontinue seroquel Discharge Disposition: Other Legal Status: Voluntary (Does not meet criteria for 5150 hold) KATHI BILL NP July 02, 2018 11:55
--- NOTE | 2018-07-02 12:19 | CONS ---
Assessment/Plan Assessment/Plan Assessment/Plan (Daily) Post dated note for visit 07/01... Nursing spoke with patient about smoking in detail. She became very verbally abusive once again.Conversation turned to pain management.I informed her we will eventually need to change to po pain meds prior to dc. Last evening confirmed this with Dr Cooper. Plan as outlined above Consultation Date/Type/Reason Admit Date/Time June 30, 2018 at 10:03 Initial Consult Date 06/30/18 Date/Time of Note DATE: 07/02/18 TIME: 11:57 Exam/Review of Systems Exam Vitals Vital Signs Date Temp Pulse Resp B/P (MAP) Pulse Ox O2 O2 Flow FiO2 Time Delivery Rate 07/02/18 98.7 102 17 131/61 98 07:09 (84) 07/02/18 Nasal 02:47 Cannula 07/01/18 2.0 20:00 Intake and Output 07/01/18 07/01/18 07/02/18 1515:00 23:00 07:00 IntakeIntake Total 2211.2 ml OutputOutput Total 0 ml BalanceBalance 2211.2 ml 0 ml Constitutional: other (aggressive verbally abusive) Neurological: MEDICAL DIRECTOR OCCUPATIONAL HEALTH II-XII intact, other (aggressive verbally abusive) Results Result Diagram: 06/30/18 1231 06/30/18 1232 Results 24hrs Laboratory Tests Test 07/01/18 12:42 Urine Opiates Screen Positive Urine Barbiturates Negative Urine Amphetamines Screen Negative Urine Benzodiazepines Screen Negative Urine Cocaine Screen Negative Urine Cannabinoids Negative Medications Medication Current Medications Ondansetron HCl (Zofran Inj) 4 mg Q4H PRN IV NAUSEA AND/OR VOMITING; Start 06/29/18 at 08:00 Diphenhydramine HCl (Benadryl) 25 mg Q4H PRN PO ITCHING Last administered on 07/02/18at 04:30; Admin Dose 25 MG; Start 06/29/18 at 08:00 Rivaroxaban (Xarelto) 10 mg WITH DINNER PO Last administered on 07/01/18at 17:16; Admin Dose 10 MG; Start 06/30/18 at 17:55 Acetaminophen (Tylenol Tab) 325 mg Q4H PRN PO MILD PAIN(1-3)OR ELEVATED TEMP Last administered on 07/01/18at 19:37; Admin Dose 325 MG; Start 06/29/18 at 08:00 Gabapentin (Neurontin) 600 mg TID PO Last administered on 07/02/18 08:12; Admin Dose 600 MG; Start 06/29/18 at 09:00 Nicotine (Nicoderm 14 Mg/ 24hr) 1 patch DAILY TRANSDERM Last administered on 07/02/18 08:12; Admin Dose 1 PATCH; Start 06/29/18 at 18:00 Quetiapine Fumarate (Seroquel) 25 mg DAILY PO Last administered on 07/02/18 08:12; Admin Dose 25 MG; Start 06/30/18 at 09:00 Quetiapine Fumarate (Seroquel) 50 mg HS PO Last administered on 07/01/18 19:38; Admin Dose 50 MG; Start 06/29/18 at 21:00 Multivitamins 10 ml/Thiamine HCl 100 mg/Folic Acid 1 mg/Sodium Chloride 1,011.2 ml @ 125 mls/ hr DAILY@09 IVPB Last administered on 07/02/18 08:12; Admin Dose 125 MLS/HR; Start 06/30/18 at 09:00 Methadone HCl (Methadone Liq) 3 mg Q6 PO Last administered on 07/02/18 06:04; Admin Dose 3 MG; Start 06/30/18 at 06:00 Hydromorphone HCl (Dilaudid COIN WRAPPING MACHINE OPERATOR) 0.5 MG/HR CONTINUOUS R... Q4PCA IV Last administered on 07/02/18 08:20; Admin Dose 6 MG; Start 06/30/18 at 14:30 Lorazepam (Ativan) 1 mg Q4H PRN IV ANXIETY Last administered on 07/02/18 05:29; Admin Dose 1 MG; Start 06/30/18 at 14:30 Naloxone HCl (Narcan) 0.4 mg ONCE PRN IV SEDATION; Start 06/30/18 at 14:30; Stop 07/05/18 at 14:29 Cholecalciferol (Vitamin D) 10,000 unit DAILY PO Last administered on 07/02/18 08:12; Admin Dose 10,000 UNIT; Start 06/30/18 at 21:30 Vitamin B Complex/ Vitamin C (Berocca) 1 cap DAILY PO Last administered on 07/02/18 08:12; Admin Dose 1 CAP; Start 06/30/18 at 21:30 DAVID GALLEGOS July 02, 2018 12:17
[2018-07-02 15:10] VITALS: BP 192/94; PULSE 125; RESP 19
[2018-07-02] MEDS: HYDROmorphONE 2 MG TAB PO PRN ×3 (15:45→23:13)
[2018-07-02 16:00] VITALS: BP 143/85
[2018-07-02] MEDS: HYDROmorphONE 2 MG/ML SYG IV PRN ×2 (17:16→20:46)
[2018-07-02] MEDS: RIVAROXABAN 10 MG TABLET PO SCH (19:12)
[2018-07-02 19:20] VITALS: BP 132/80; PULSE 99; RESP 20
--- NOTE | 2018-07-02 19:39 | PN ---
Date/Time of Note Date/Time of Note DATE: 07/02/18 TIME: 19:38 Assessment/Plan VTE Prophylaxis Risk score (from Ns)>0 risk: 2 SCD applied (from Ns): Yes Pharmacological prophylaxis: rivaroxaban Lines/Catheters IV Catheter Type (from Nrsg): Saline Lock Urinary Cath still in place: No Assessment/Plan Hospital Course 1. Left distal tibial pilon fracture and fibular fracture status post left ankle ORIF as well as removal of prior hardware and application of allograft and wound VAC postop day #2 Pain control, Dr. Lainez has been consulted for pain management, patient now on oral agents Follow-up on Ortho recommendations Status post empiric antibiotics 2. History of hepatitis C GI consultation for treatment options 3. Polysubstance abuse with history of meth and heroin abuse Suspected use in her hospital room, follow-up on toxicology HIV is negative Cessation Prophylaxis: Xarelto Result Diagram: 06/30/18 1231 06/30/18 1232 Subjective 24 Hr Interval Summary Constitutional: no complaints Exam/Review of Systems Exam Vitals Vital Signs Date Temp Pulse Resp B/P (MAP) Pulse Ox O2 O2 Flow FiO2 Time Delivery Rate 07/02/18 99.6 125 19 192/94 92 15:10 (126) 07/02/18 Nasal 02:47 Cannula 07/01/18 2.0 20:00 Intake and Output 07/01/18 07/01/18 07/02/18 1515:00 23:00 07:00 IntakeIntake Total 2211.2 ml OutputOutput Total 0 ml BalanceBalance 2211.2 ml 0 ml Constitutional: alert, oriented Respiratory: clear to auscultation Cardiovascular: regular rate and rhythm Gastrointestinal: soft; No distended Musculoskeletal: nl extremities to inspection Medications Medication Current Medications Ondansetron HCl (Zofran Inj) 4 mg Q4H PRN IV NAUSEA AND/OR VOMITING; Start 06/29/18 at 08:00 Diphenhydramine HCl (Benadryl) 25 mg Q4H PRN PO ITCHING Last administered on 07/02/18at 04:30; Admin Dose 25 MG; Start 06/29/18 at 08:00 Rivaroxaban (Xarelto) 10 mg WITH DINNER PO Last administered on 07/02/18at 19:12; Admin Dose 10 MG; Start 06/30/18 at 17:55 Acetaminophen (Tylenol Tab) 325 mg Q4H PRN PO MILD PAIN(1-3)OR ELEVATED TEMP Last administered on 07/01/18 19:37; Admin Dose 325 MG; Start 06/29/18 at 08:00 Gabapentin (Neurontin) 600 mg TID PO Last administered on 07/02/18 08:12; Admin Dose 600 MG; Start 06/29/18 at 09:00 Nicotine (Nicoderm 14 Mg/ 24hr) 1 patch DAILY TRANSDERM Last administered on 07/02/18 08:12; Admin Dose 1 PATCH; Start 06/29/18 at 18:00 Quetiapine Fumarate (Seroquel) 25 mg DAILY PO Last administered on 07/02/18 08:12; Admin Dose 25 MG; Start 06/30/18 at 09:00 Quetiapine Fumarate (Seroquel) 50 mg HS PO Last administered on 07/01/18 19:38; Admin Dose 50 MG; Start 06/29/18 at 21:00 Multivitamins 10 ml/Thiamine HCl 100 mg/Folic Acid 1 mg/Sodium Chloride 1,011.2 ml @ 125 mls/ hr DAILY@09 IVPB Last administered on 07/02/18 08:12; Admin Dose 125 MLS/HR; Start 06/30/18 at 09:00 Lorazepam (Ativan) 1 mg Q4H PRN IV ANXIETY Last administered on 07/02/18 05:29; Admin Dose 1 MG; Start 06/30/18 at 14:30 Naloxone HCl (Narcan) 0.4 mg ONCE PRN IV SEDATION; Start 06/30/18 at 14:30; Stop 07/05/18 at 14:29 Cholecalciferol (Vitamin D) 10,000 unit DAILY PO Last administered on 07/02/18 08:12; Admin Dose 10,000 UNIT; Start 06/30/18 at 21:30 Vitamin B Complex/ Vitamin C (Berocca) 1 cap DAILY PO Last administered on 07/02/18 08:12; Admin Dose 1 CAP; Start 06/30/18 at 21:30 Hydromorphone HCl (Dilaudid) 3 mg Q4H PRN PO SEVERE PAIN LEVEL 7-10 Last administered on 07/02/18 19:13; Admin Dose 3 MG; Start 07/02/18 at 12:30 Hydromorphone HCl (Dilaudid) 3 mg Q3H PRN IV SEVERE PAIN LEVEL 7-10 Last administered on 07/02/18at 17:16; Admin Dose 3 MG; Start 07/02/18 at 17:00 TENZIN RANGEL July 02, 2018 19:38
--- NOTE | 2018-07-02 20:23 | QN ---
Documentation Comment Per Nurse, patient was initially refusing blood thinner and is consistently going outside and smoking despite my highly recommending against her smoking as it puts the wound and fracture healing at great risk and could lead to an infection DC GROVES MD July 02, 2018 20:23
[2018-07-03] MEDS: HYDROmorphONE 2 MG/ML SYG IV PRN ×4 (01:15→12:30)
[2018-07-03 01:20] VITALS: BP 125/72; PULSE 106; RESP 18
[2018-07-03] MEDS: LORAZEPAM 2 MG INJ IV PRN ×2 (03:08→14:34)
--- NOTE | 2018-07-03 06:27 | CONS ---
Assessment/Plan Assessment/Plan Assessment/Plan (Daily) Assessment/Plan (Daily) Left ankle fracture status post ORIF History of crystal methamphetamine use History of heroin abuse History of short acting opioids abuse Anxiety Depression Possible psychosis Opioid withdrawal Possible alcohol withdrawal Discussion with patient once again in her room with nursing in attendance and security. I presented to her that we need to transition her to oral pain control medications ,at that time she became verbally abusive, screaming at all of us stating that no one is paying attention to her pain management. She also insists that she has spoken with other members of staff who have given her permission to smoke. States she was promised to have her pain better controlled with continuing ORTHO NURSE longer. This was not the plan as discussed with Dr Cooper. Patient was to be discharged the or . SWS are working on a safe discharge however patient was still using just prior to admission and will need methadone as an outpatient and a facility that will take her with experience in drug withdrawal. This presents a problem as we are not allowed to dc patients with a methadone prescription because this patient is HIGH risk of using heroin and meth as soon as discharged. I do not think a SNF will take her based upon her current behavior and she would probably refuse anyway. Keeping her on high doses of ORTHO NURSE or dilaudid in house is dangerous as we are sure she has used since arrival. Emphasize opioids should not be prescribed at discharge not even low potency meds. When I spoke with her yesterday she was again verbally abusive, accusatory and I have taken security and nursing in the room on each occasion. She continues to smoke . I suggest restricting her outside privileges unless she gives her cigarettes to the staff. Consultation Date/Type/Reason Admit Date/Time June 30, 2018 at 10:03 Initial Consult Date 06/30/18 Date/Time of Note DATE: 07/03/18 TIME: 06:10 Exam/Review of Systems Exam Vitals Vital Signs Date Temp Pulse Resp B/P (MAP) Pulse Ox O2 O2 Flow FiO2 Time Delivery Rate 07/03/18 98.3 106 18 125/72 99 Room Air 01:20 (89) 07/01/18 2.0 20:00 Intake and Output 07/02/18 07/02/18 07/03/18 1515:00 23:00 07:00 IntakeIntake Total 1261.2 ml 400 ml BalanceBalance 1261.2 ml 400 ml Constitutional: other Psych: other (aggresssive and abusive) Neurological: CORE STACKER II-XII intact, nl mental status, nl speech, nl strength Results Result Diagram: 06/30/18 1231 06/30/18 1232 Medications Medication Current Medications Ondansetron HCl (Zofran Inj) 4 mg Q4H PRN IV NAUSEA AND/OR VOMITING; Start 06/29/18 at 08:00 Diphenhydramine HCl (Benadryl) 25 mg Q4H PRN PO ITCHING Last administered on 07/02/18 04:30; Admin Dose 25 MG; Start 06/29/18 at 08:00 Rivaroxaban (Xarelto) 10 mg WITH DINNER PO Last administered on 07/02/18 19:12; Admin Dose 10 MG; Start 06/30/18 at 17:55 Acetaminophen (Tylenol Tab) 325 mg Q4H PRN PO MILD PAIN(1-3)OR ELEVATED TEMP Last administered on 07/01/18 19:37; Admin Dose 325 MG; Start 06/29/18 at 08:00 Gabapentin (Neurontin) 600 mg TID PO Last administered on 07/02/18 19:57; Admin Dose 600 MG; Start 06/29/18 at 09:00 Nicotine (Nicoderm 14 Mg/ 24hr) 1 patch DAILY TRANSDERM Last administered on 07/02/18 08:12; Admin Dose 1 PATCH; Start 06/29/18 at 18:00 Quetiapine Fumarate (Seroquel) 25 mg DAILY PO Last administered on 07/02/18 08:12; Admin Dose 25 MG; Start 06/30/18 at 09:00 Quetiapine Fumarate (Seroquel) 50 mg HS PO Last administered on 07/01/18 19:38; Admin Dose 50 MG; Start 06/29/18 at 21:00 Multivitamins 10 ml/Thiamine HCl 100 mg/Folic Acid 1 mg/Sodium Chloride 1,011.2 ml @ 125 mls/ hr DAILY@09 IVPB Last administered on 07/02/18 08:12; Admin Dose 125 MLS/HR; Start 06/30/18 at 09:00 Lorazepam (Ativan) 1 mg Q4H PRN IV ANXIETY Last administered on 07/03/18 03:08 ; Admin Dose 1 MG; Start 06/30/18 at 14:30 Naloxone HCl (Narcan) 0.4 mg ONCE PRN IV SEDATION; Start 06/30/18 at 14:30; Stop 07/05/18 at 14:29 Cholecalciferol (Vitamin D) 10,000 unit DAILY PO Last administered on 07/02/18 08:12; Admin Dose 10,000 UNIT; Start 06/30/18 at 21:30 Vitamin B Complex/ Vitamin C (Berocca) 1 cap DAILY PO Last administered on 07/02/18 08:12; Admin Dose 1 CAP; Start 06/30/18 at 21:30 Hydromorphone HCl (Dilaudid) 3 mg Q4H PRN PO SEVERE PAIN LEVEL 7-10 Last administered on 07/02/18at 23:13; Admin Dose 3 MG; Start 07/02/18 at 12:30 Hydromorphone HCl (Dilaudid) 3 mg Q3H PRN IV SEVERE PAIN LEVEL 7-10 Last administered on 07/03/18at 04:55; Admin Dose 3 MG; Start 07/02/18 at 17:00 DAVID GALLEGOS July 03, 2018 06:26
[2018-07-03] MEDS: HYDROmorphONE 2 MG TAB PO PRN ×4 (06:42→22:02)
[2018-07-03] MEDS: VITAMIN B COMPLEX/VIT C CAP PO SCH (08:53)
[2018-07-03] MEDS: CHOLECALCIFEROL 2,000 UNIT CAP PO SCH (08:53)
[2018-07-03] MEDS: GABAPENTIN 300 MG CAP PO SCH ×3 (08:54→19:56)
[2018-07-03] MEDS: NICOTINE (14 MG/24 HR) PATCH TRANSDERM SCH (08:54)
[2018-07-03] MEDS: QUETIAPINE 25 MG TAB PO SCH ×2 (08:55→20:10)
[2018-07-03 14:58] VITALS: BP 134/72; RESP 19
--- NOTE | 2018-07-03 17:01 | PN ---
Date/Time of Note Date/Time of Note DATE: 07/03/18 TIME: 17:01 Assessment/Plan VTE Prophylaxis Risk score (from Nsg)>0 risk: 5 SCD applied (from Nsg): Yes Pharmacological prophylaxis: rivaroxaban Lines/Catheters IV Catheter Type (from Nrsg): Saline Lock Urinary Cath still in place: No Assessment/Plan Hospital Course 1. Left distal tibial pilon fracture and fibular fracture status post left ankle ORIF as well as removal of prior hardware and application of allograft and wound VAC postop day #2 Pain control, Dr. Lainez has been consulted for pain management, patient now on oral agents Follow-up on Ortho recommendations Status post empiric antibiotics 2. History of hepatitis C GI consultation for treatment options 3. Polysubstance abuse with history of meth and heroin abuse Suspected use in her hospital room, follow-up on toxicology HIV is negative Cessation Prophylaxis: Xarelto Result Diagram: 06/30/18 1231 06/30/18 1232 Results 24hrs Laboratory Tests Test 07/03/18 09:47 Lab Scanned Report REFERENCE LAB Subjective 24 Hr Interval Summary Musculoskeletal: bone/joint pain Exam/Review of Systems Exam Vitals Vital Signs Date Temp Pulse Resp B/P (MAP) Pulse Ox O2 O2 Flow FiO2 Time Delivery Rate 07/03/18 134/72 98 14:58 (92) 07/03/18 98.3 106 Room Air 01:20 07/01/18 2.0 20:00 Intake and Output 07/02/18 07/02/18 07/03/18 1515:00 23:00 07:00 IntakeIntake Total 1261.2 ml 400 ml OutputOutput Total 0 ml BalanceBalance 1261.2 ml 400 ml Constitutional: alert, oriented Respiratory: clear to auscultation Cardiovascular: regular rate and rhythm Gastrointestinal: soft; No distended Musculoskeletal: No nl extremities to inspection Results Results 24hrs Laboratory Tests Test 07/03/18 09:47 Lab Scanned Report REFERENCE LAB Medications Medication Current Medications Ondansetron HCl (Zofran Inj) 4 mg Q4H PRN IV NAUSEA AND/OR VOMITING; Start 06/29/18 at 08:00 Diphenhydramine HCl (Benadryl) 25 mg Q4H PRN PO ITCHING Last administered on 07/02/18at 04:30; Admin Dose 25 MG; Start 06/29/18 at 08:00 Rivaroxaban (Xarelto) 10 mg WITH DINNER PO Last administered on 07/02/18 19:12; Admin Dose 10 MG; Start 06/30/18 at 17:55 Acetaminophen (Tylenol Tab) 325 mg Q4H PRN PO MILD PAIN(1-3)OR ELEVATED TEMP Last administered on 07/01/18 19:37; Admin Dose 325 MG; Start 06/29/18 at 08:00 Gabapentin (Neurontin) 600 mg TID PO Last administered on 07/03/18 12:28; Admin Dose 600 MG; Start 06/29/18 at 09:00 Nicotine (Nicoderm 14 Mg/ 24hr) 1 patch DAILY TRANSDERM Last administered on 07/03/18 08:54; Admin Dose 1 PATCH; Start 06/29/18 at 18:00 Quetiapine Fumarate (Seroquel) 25 mg DAILY PO Last administered on 07/02/18 08 :12; Admin Dose 25 MG; Start 06/30/18 at 09:00 Quetiapine Fumarate (Seroquel) 50 mg HS PO Last administered on 07/01/18 19:38; Admin Dose 50 MG; Start 06/29/18 at 21:00 Naloxone HCl (Narcan) 0.4 mg ONCE PRN IV SEDATION; Start 06/30/18 at 14:30; Stop 07/05/18 at 14:29 Cholecalciferol (Vitamin D) 10,000 unit DAILY PO Last administered on 07/03/18 08:53; Admin Dose 10,000 UNIT; Start 06/30/18 at 21:30 Vitamin B Complex/ Vitamin C (Berocca) 1 cap DAILY PO Last administered on 07/03/18 08:53; Admin Dose 1 CAP; Start 06/30/18 at 21:30 Hydromorphone HCl (Dilaudid) 3 mg Q4H PRN PO SEVERE PAIN LEVEL 7-10 Last administered on 07/03/18 11:27; Admin Dose 3 MG; Start 07/02/18 at 12:30 Methadone HCl (Methadone Liq) 7 mg Q8 PO ; Start 07/03/18 at 22:00 Lorazepam (Ativan) 1 mg Q4 PRN PO AGITATION/ANXIETY; Start 07/03/18 at 16:00 TENZIN RANGEL July 03, 2018 17:01
--- NOTE | 2018-07-03 17:56 | PN ---
Date/Time of Note Date/Time of Note DATE: 07/03/18 TIME: 17:56 Assessment/Plan Lines/Catheters IV Catheter Type (from Nrsg): Saline Lock Casanova in Place (from Nrsg): No Assessment/Plan Assessment/Plan Postop day #4 status post left ankle tibial pilon and fibula open reduction internal fixation - Nonweightbearing to the left lower extremity - Dr Lainez for pain control - PCP mgmt of hep C - pt for GT - Social work/case mgmt consult for post op mgmt and home health - ok to [place] home when cleared by Primary Medicine and Pain teams - Xarelto for DVT prophx for 6 weeks - encourage to be nicotine Free - and explained to the patient that she is at a high risk for infection and possible loss of limb if she continues to smoke cigarettes or do Meth/Heroin --- Godfrey Groves MD Subjective 24 Hr Interval Summary Patient reports her pain is better controlled but she very angry tonight about having to go to PO pain Meds. Per the nurses patient was very combative with them and smoked cigarettes Feeding: advancing diet Pain Control: well controlled Exam/Review of Systems Vital Signs Vitals Vital Signs Date Temp Pulse Resp B/P (MAP) Pulse Ox O2 O2 Flow FiO2 Time Delivery Rate 07/07/18 99.1 104 18 117/69 98 04:26 (85) 07/03/18 Room Air 20:14 Intake and Output 07/06/18 07/06/18 07/07/18 1515:00 23:00 07:00 IntakeIntake Total 720 ml 400 ml 250 ml BalanceBalance 720 ml 400 ml 250 ml Exam Constitutional: alert, oriented, well developed Musculoskeletal: other (Left lower extremity-splint removed and Prevena wound vac removed. Wounds appear clean and dry. Toes wiggle and capillary refill is brisk. Toes are warm and well-perfused. Sensation intact light touch to the medial, lateral, dorsal and plantar, first dorsal webspace distribution.) Results Result Diagram: 07/06/18 0700 07/06/18 07 DC GROVES MD July 03, 2018 17:56
[2018-07-03] MEDS: RIVAROXABAN 10 MG TABLET PO SCH (18:19)
[2018-07-03] MEDS ORDERED: METHADONE (1 MG/ML 5 ML PO UD SYG) PO SCH (20:00)
[2018-07-03 20:14] VITALS: BP 132/83; PULSE 118; RESP 18
[2018-07-03] MEDS: LORAZEPAM 1 MG TAB PO PRN (20:35)
[2018-07-04] MEDS: LORAZEPAM 1 MG TAB PO PRN ×4 (00:31→17:02)
[2018-07-04] MEDS ORDERED: CARISOPRODOL 350 MG TAB PO ONE (01:05)
[2018-07-04] MEDS: HYDROmorphONE 2 MG TAB PO PRN ×5 (02:02→23:34)
[2018-07-04 02:06] VITALS: BP 120/68; PULSE 103; RESP 18
[2018-07-04] MEDS: METHADONE (1 MG/ML 5 ML PO UD SYG) PO SCH ×3 (04:00→21:49)
[2018-07-04 07:51] VITALS: BP 116/58; PULSE 100; RESP 18
[2018-07-04] MEDS: VITAMIN B COMPLEX/VIT C CAP PO SCH (09:16)
[2018-07-04] MEDS: QUETIAPINE 25 MG TAB PO SCH ×2 (09:16→21:47)
[2018-07-04] MEDS: GABAPENTIN 300 MG CAP PO SCH ×3 (09:16→21:47)
[2018-07-04] MEDS: CHOLECALCIFEROL 2,000 UNIT CAP PO SCH (09:16)
[2018-07-04] MEDS: NICOTINE (14 MG/24 HR) PATCH TRANSDERM SCH (09:17)
[2018-07-04] MEDS: CARISOPRODOL 350 MG TAB PO PRN (09:39)
--- NOTE | 2018-07-04 13:04 | PN ---
Date/Time of Note Date/Time of Note DATE: 07/04/18 TIME: 13:03 Assessment/Plan VTE Prophylaxis Risk score (from Nsg)>0 risk: 2 Pharmacological prophylaxis: rivaroxaban Lines/Catheters IV Catheter Type (from Nrsg): Saline Lock Urinary Cath still in place: No Assessment/Plan Hospital Course 1. Left distal tibial pilon fracture and fibular fracture status post left ankle ORIF as well as removal of prior hardware and application of allograft and wound VAC postop day #2 Pain control, Dr. Lainez has been consulted for pain management, patient now on oral agents Follow-up on Ortho recommendations, wound VAC removed Status post empiric antibiotics 2. History of hepatitis C GI consultation for treatment options 3. Polysubstance abuse with history of meth and heroin abuse Suspected use in her hospital room, follow-up on toxicology HIV is negative Cessation 4. Severe agitation and anxiety Psychiatry following Transfer to [facility] Prophylaxis: Xarelto DC planning: poultry dressing worker arranging for placement Result Diagram: 06/30/18 1231 06/30/18 1232 Subjective 24 Hr Interval Summary Musculoskeletal: bone/joint pain Exam/Review of Systems Exam Vitals Vital Signs Date Temp Pulse Resp B/P (MAP) Pulse Ox O2 O2 Flow FiO2 Time Delivery Rate 07/04/18 98.5 100 18 116/58 99 07:51 (77) 07/03/18 Room Air 20:14 07/01/18 2.0 20:00 Intake and Output 07/03/18 07/03/18 07/04/18 1515:00 23:00 07:00 IntakeIntake Total 1760 ml 840 ml BalanceBalance 1760 ml 840 ml Constitutional: alert, oriented Psych: anxiety Respiratory: clear to auscultation Cardiovascular: regular rate and rhythm Gastrointestinal: soft; No distended Musculoskeletal: nl extremities to inspection Medications Medication Current Medications Ondansetron HCl (Zofran Inj) 4 mg Q4H PRN IV NAUSEA AND/OR VOMITING; Start 06/29/18 at 08:00 Diphenhydramine HCl (Benadryl) 25 mg Q4H PRN PO ITCHING Last administered on 07/02/18at 04:30; Admin Dose 25 MG; Start 06/29/18 at 08:00 Rivaroxaban (Xarelto) 10 mg WITH DINNER PO Last administered on 07/03/18at 18:19; Admin Dose 10 MG; Start 06/30/18 at 17:55 Acetaminophen (Tylenol Tab) 325 mg Q4H PRN PO MILD PAIN(1-3)OR ELEVATED TEMP Last administered on 07/01/18 19:37; Admin Dose 325 MG; Start 06/29/18 at 08:00 Gabapentin (Neurontin) 600 mg TID PO Last administered on 07/04/18 09:16; Admin Dose 600 MG; Start 06/29/18 at 09:00 Nicotine (Nicoderm 14 Mg/ 24hr) 1 patch DAILY TRANSDERM Last administered on 07/04/18 09:17; Admin Dose 1 PATCH; Start 06/29/18 at 18:00 Quetiapine Fumarate (Seroquel) 25 mg DAILY PO Last administered on 07/04/18 09:16; Admin Dose 25 MG; Start 06/30/18 at 09:00 Quetiapine Fumarate (Seroquel) 50 mg HS PO Last administered on 07/01/18 19:38; Admin Dose 50 MG; Start 06/29/18 at 21:00 Naloxone HCl (Narcan) 0.4 mg ONCE PRN IV SEDATION; Start 06/30/18 at 14:30; Stop 07/05/18 at 14:29 Cholecalciferol (Vitamin D) 10,000 unit DAILY PO Last administered on 07/04/18 09:16; Admin Dose 10,000 UNIT; Start 06/30/18 at 21:30 Vitamin B Complex/ Vitamin C (Berocca) 1 cap DAILY PO Last administered on 07/04/18 09:16; Admin Dose 1 CAP; Start 06/30/18 at 21:30 Hydromorphone HCl (Dilaudid) 3 mg Q4H PRN PO SEVERE PAIN LEVEL 7-10 Last administered on 07/04/18 10:29; Admin Dose 3 MG; Start 07/02/18 at 12:30 Lorazepam (Ativan) 1 mg Q4 PRN PO AGITATION/ANXIETY Last administered on 07/04/18 09:16; Admin Dose 1 MG; Start 07/03/18 at 16:00 Methadone HCl (Methadone Liq) 7 mg Q8H PO Last administered on 07/04/18 04:00; Admin Dose 7 MG; Start 07/04/18 at 04:00 Carisoprodol (Soma) 350 mg Q8H PRN PO MUSCLE SPASMS Last administered on 07/04/18at 09:39; Admin Dose 350 MG; Start 07/04/18 at 09:30 TENZIN RANGEL July 04, 2018 13:04
[2018-07-04] MEDS: RIVAROXABAN 10 MG TABLET PO SCH (17:02)
[2018-07-04 20:00] VITALS: BP 110/70; PULSE 112; RESP 24
[2018-07-04 22:15] VITALS: PULSE 119; RESP 20
[2018-07-05 01:00] VITALS: BP 104/63; PULSE 118; RESP 24
[2018-07-05 03:55] VITALS: PULSE 109
[2018-07-05 04:12] VITALS: RESP 20
[2018-07-05] MEDS: METHADONE (1 MG/ML 5 ML PO UD SYG) PO SCH ×3 (04:48→20:06)
[2018-07-05] MEDS: LORAZEPAM 1 MG TAB PO PRN ×2 (04:56→15:03)
[2018-07-05 07:20] VITALS: BP 106/67; PULSE 112; RESP 19
[2018-07-05] MEDS: NICOTINE (14 MG/24 HR) PATCH TRANSDERM SCH (08:19)
[2018-07-05] MEDS: CHOLECALCIFEROL 2,000 UNIT CAP PO SCH (08:19)
[2018-07-05] MEDS: GABAPENTIN 300 MG CAP PO SCH ×3 (08:19→21:27)
[2018-07-05] MEDS: QUETIAPINE 25 MG TAB PO SCH ×3 (08:19→20:11)
[2018-07-05] MEDS: HYDROmorphONE 2 MG TAB PO PRN ×3 (08:20→20:06)
[2018-07-05] MEDS ORDERED: VITAMIN A & D 5 GM OINT PACKET TOP ONE (08:26)
[2018-07-05] MEDS: VITAMIN B COMPLEX/VIT C CAP PO SCH (09:17)
[2018-07-05] MEDS: ACETAMINOPHEN 325 MG TAB PO PRN ×2 (14:26→18:31)
[2018-07-05 15:08] VITALS: BP 122/83; PULSE 100; RESP 17
[2018-07-05] MEDS: RIVAROXABAN 10 MG TABLET PO SCH (18:27)
[2018-07-05] MEDS: CARISOPRODOL 350 MG TAB PO PRN (18:46)
--- NOTE | 2018-07-05 19:20 | PN ---
Date/Time of Note Date/Time of Note DATE: 07/05/18 TIME: 19:18 Assessment/Plan VTE Prophylaxis Risk score (from Nsg)>0 risk: 8 Pharmacological prophylaxis: rivaroxaban Lines/Catheters IV Catheter Type (from Nrsg): Saline Lock Urinary Cath still in place: No Assessment/Plan Hospital Course 1. Left distal tibial pilon fracture and fibular fracture status post left ankle ORIF as well as removal of prior hardware and application of allograft and wound VAC postop day #2 Pain control, Dr. Lainez has been consulted for pain management, patient now on oral agents Follow-up on Ortho recommendations, wound VAC removed Status post empiric antibiotics 2. History of hepatitis C GI consultation for treatment options 3. Polysubstance abuse with history of meth and heroin abuse Earlier possible use in her hospital room but toxicology is negative HIV is negative Cessation 4. Severe agitation and anxiety Psychiatry following Transferred to [facility] 5. Sepsis/SIRS Patient now with tachycardia and fevers Follow-up on blood cultures Empiric Ancef MRSA screen A.m. labs Prophylaxis: Xarelto DC planning: Patient has been requiring placement but patient's mother stated that she will take her in, case worker to arrange for home health at mother's house Subjective 24 Hr Interval Summary Musculoskeletal: bone/joint pain Exam/Review of Systems Exam Vitals Vital Signs Date Temp Pulse Resp B/P (MAP) Pulse Ox O2 O2 Flow FiO2 Time Delivery Rate 07/05/18 99.2 18:31 07/05/18 100 17 122/83 96 15:08 (96) 07/03/18 Room Air 20:14 07/01/18 2.0 20:00 Intake and Output 07/04/18 07/04/18 07/05/18 1515:00 23:00 07:00 IntakeIntake Total 400 ml 640 ml 2090 ml BalanceBalance 400 ml 640 ml 2090 ml Constitutional: alert, oriented Respiratory: clear to auscultation Cardiovascular: regular rate and rhythm Gastrointestinal: soft; No distended Musculoskeletal: No nl extremities to inspection Medications Medication Current Medications Ondansetron HCl (Zofran Inj) 4 mg Q4H PRN IV NAUSEA AND/OR VOMITING; Start 06/29/18 at 08:00 Diphenhydramine HCl (Benadryl) 25 mg Q4H PRN PO ITCHING Last administered on 5/23/19at 04:30; Admin Dose 25 MG; Start 06/29/18 at 08:00 Rivaroxaban (Xarelto) 10 mg WITH DINNER PO Last administered on 07/05/18 18:27; Admin Dose 10 MG; Start 06/30/18 at 17:55 Acetaminophen (Tylenol Tab) 325 mg Q4H PRN PO MILD PAIN(1-3)OR ELEVATED TEMP Last administered on 07/05/18 18:31; Admin Dose 325 MG; Start 06/29/18 at 08:00 Gabapentin (Neurontin) 600 mg TID PO Last administered on 07/05/18 13:37; Admin Dose 600 MG; Start 06/29/18 at 09:00 Nicotine (Nicoderm 14 Mg/ 24hr) 1 patch DAILY TRANSDERM Last administered on 07/05/18 08:19; Admin Dose 1 PATCH; Start 06/29/18 at 18:00 Quetiapine Fumarate (Seroquel) 25 mg DAILY PO Last administered on 07/05/18 08:19; Admin Dose 25 MG; Start 06/30/18 at 09:00 Quetiapine Fumarate (Seroquel) 50 mg HS PO Last administered on 07/04/18 21:47; Admin Dose 50 MG; Start 06/29/18 at 21:00 Cholecalciferol (Vitamin D) 10,000 unit DAILY PO Last administered on 07/05/18 08:19; Admin Dose 10,000 UNIT; Start 06/30/18 at 21:30 Vitamin B Complex/ Vitamin C (Berocca) 1 cap DAILY PO Last administered on 07/05/18 09:17; Admin Dose 1 CAP; Start 06/30/18 at 21:30 Hydromorphone HCl (Dilaudid) 3 mg Q4H PRN PO SEVERE PAIN LEVEL 7-10 Last administered on 07/05/18 15:03; Admin Dose 3 MG; Start 07/02/18 at 12:30 Lorazepam (Ativan) 1 mg Q4 PRN PO AGITATION/ANXIETY Last administered on 07/05/18 15:03; Admin Dose 1 MG; Start 07/03/18 at 16:00 Methadone HCl (Methadone Liq) 7 mg Q8H PO Last administered on 07/05/18 13:37; Admin Dose 7 MG; Start 07/04/18 at 04:00 Carisoprodol (Soma) 350 mg Q8H PRN PO MUSCLE SPASMS Last administered on 07/05/18at 18:46; Admin Dose 350 MG; Start 07/04/18 at 09:30 TENZIN RANGEL July 05, 2018 19:20
[2018-07-05] MEDS ORDERED: VANCOMYCIN IV PER PHARMACY XX SCH (19:30)
[2018-07-05 20:08] VITALS: BP 113/67; PULSE 110; RESP 17
[2018-07-05] MEDS ORDERED: VANCOMYCIN HCL 1.5 GM in SOD CHLORIDE 0.9% 250 ML IVPB SCH (21:00)
[2018-07-05] MEDS ORDERED: CEFAZOLIN 2 GM/50 ML (PMX) 50 ML IVPB SCH (22:00)
[2018-07-06 02:28] VITALS: BP 119/79; PULSE 116; RESP 18
[2018-07-06] MEDS: HYDROmorphONE 2 MG TAB PO PRN ×4 (02:29→20:08)
[2018-07-06 04:28] VITALS: BP 129/58; PULSE 116; RESP 17
[2018-07-06] MEDS: METHADONE (1 MG/ML 5 ML PO UD SYG) PO SCH ×3 (04:30→20:09)
[2018-07-06] MEDS: VANCOMYCIN 750 MG (PMX) 250 ML IVPB SCH ×3 (04:31→22:54)
[2018-07-06] MEDS: ACETAMINOPHEN 325 MG TAB PO PRN (04:31)
[2018-07-06] MEDS: CARISOPRODOL 350 MG TAB PO PRN ×2 (05:07→17:08)
[2018-07-06 08:00] VITALS: BP 98/58; PULSE 102; RESP 18
[2018-07-06] MEDS: GABAPENTIN 300 MG CAP PO SCH ×3 (08:32→21:44)
[2018-07-06] MEDS: NICOTINE (14 MG/24 HR) PATCH TRANSDERM SCH (08:33)
[2018-07-06] MEDS: CHOLECALCIFEROL 2,000 UNIT CAP PO SCH (08:33)
[2018-07-06] MEDS: QUETIAPINE 25 MG TAB PO SCH ×2 (08:34→21:00)
[2018-07-06] MEDS: VITAMIN B COMPLEX/VIT C CAP PO SCH (08:34)
[2018-07-06] MEDS: LORAZEPAM 1 MG TAB PO PRN ×3 (14:04→21:44)
[2018-07-06] MEDS: RIVAROXABAN 10 MG TABLET PO SCH (18:11)
[2018-07-06] MEDS ORDERED: POLYETHYLENE GLYCOL 17 GM PACKET GTB SCH (22:30)
[2018-07-06 22:35] VITALS: BP 124/74; PULSE 111; RESP 18
[2018-07-06] MEDS: DOCUSATE SODIUM 100 MG CAP PO SCH (22:41)
[2018-07-06] MEDS: POLYETHYLENE GLYCOL 17 GM PACKET PO SCH (22:42)
[2018-07-07] MEDS: CARISOPRODOL 350 MG TAB PO PRN ×3 (00:44→17:30)
[2018-07-07] MEDS: HYDROmorphONE 2 MG TAB PO PRN ×5 (00:45→21:08)
[2018-07-07 02:00] VITALS: BP 111/59; PULSE 99; RESP 17
[2018-07-07] MEDS: METHADONE (1 MG/ML 5 ML PO UD SYG) PO SCH ×3 (04:05→21:07)
[2018-07-07 04:26] VITALS: BP 117/69; PULSE 104; RESP 18
[2018-07-07] MEDS ORDERED: VANCOMYCIN 1 GM 250 ML IVPB SCH (06:00)
[2018-07-07] MEDS: QUETIAPINE 25 MG TAB PO SCH ×2 (09:00→21:10)
[2018-07-07] MEDS: GABAPENTIN 300 MG CAP PO SCH ×3 (09:24→21:07)
[2018-07-07] MEDS: CHOLECALCIFEROL 2,000 UNIT CAP PO SCH (09:25)
[2018-07-07] MEDS: DOCUSATE SODIUM 100 MG CAP PO SCH (09:26)
[2018-07-07] MEDS: VITAMIN B COMPLEX/VIT C CAP PO SCH (09:28)
[2018-07-07] MEDS: POLYETHYLENE GLYCOL 17 GM PACKET PO SCH (09:29)
[2018-07-07] MEDS: NICOTINE (14 MG/24 HR) PATCH TRANSDERM SCH (09:36)
--- NOTE | 2018-07-07 16:17 | PN ---
Date/Time of Note Date/Time of Note DATE: 07/07/18 TIME: 16:15 Assessment/Plan VTE Prophylaxis Risk score (from Nsg)>0 risk: 8 SCD applied (from Nsg): Yes Pharmacological prophylaxis: heparin Lines/Catheters IV Catheter Type (from Nrsg): Saline Lock Urinary Cath still in place: No Assessment/Plan Hospital Course Discheveld Emotionally lable Comfortable RLE in cast A/P: 32 yo female wtih opiate use d/o with ORIF of ankle - Orthopedic management per Dr Cooper - Khanh use d/o per Dr Verma - Seymour planning, hopefully tomorrow Result Diagram: 07/06/18 0700 07/06/18 0700 Results 24hrs Laboratory Tests Test 07/06/18 21:52 07/07/18 11:17 07/07/18 11:21 07/07/18 11:26 Vancomycin 9.1 L Level Trough Lab Scanned REFERENCE LAB REFERENCE LAB REFERENCE LAB Report Subjective 24 Hr Interval Summary Free Text/Dictation Patient upset about many things affecting comfort of her hosptial stay Often hostile and inflammatory Exam/Review of Systems Exam Vitals Vital Signs Date Temp Pulse Resp B/P (MAP) Pulse Ox O2 O2 Flow FiO2 Time Delivery Rate 07/07/18 99.1 104 18 117/69 98 04:26 (85) 07/03/18 Room Air 20:14 Intake and Output 07/06/18 07/06/18 07/07/18 1515:00 23:00 07:00 IntakeIntake Total 720 ml 400 ml 250 ml BalanceBalance 720 ml 400 ml 250 ml Results Results 24hrs Laboratory Tests Test 07/06/18 21:52 07/07/18 11:17 07/07/18 11:21 07/07/18 11:26 Vancomycin 9.1 L Level Trough Lab Scanned REFERENCE LAB REFERENCE LAB REFERENCE LAB Report Medications Medication Current Medications Ondansetron HCl (Zofran Inj) 4 mg Q4H PRN IV NAUSEA AND/OR VOMITING; Start 06/29/18 at 08:00 Diphenhydramine HCl (Benadryl) 25 mg Q4H PRN PO ITCHING Last administered on 07/02/18at 04:30; Admin Dose 25 MG; Start 06/29/18 at 08:00 Rivaroxaban (Xarelto) 10 mg WITH DINNER PO Last administered on 07/06/18 18:11; Admin Dose 10 MG; Start 06/30/18 at 17:55 Acetaminophen (Tylenol Tab) 325 mg Q4H PRN PO MILD PAIN(1-3)OR ELEVATED TEMP Last administered on 07/06/18 04:31; Admin Dose 325 MG; Start 06/29/18 at 08:00 Gabapentin (Neurontin) 600 mg TID PO Last administered on 07/07/18 12:31; Admin Dose 600 MG; Start 06/29/18 at 09:00 Nicotine (Nicoderm 14 Mg/ 24hr) 1 patch DAILY TRANSDERM Last administered on 07/07/18 09:36; Admin Dose 1 PATCH; Start 06/29/18 at 18:00 Quetiapine Fumarate (Seroquel) 25 mg DAILY PO Last administered on 07/06/18 08:34; Admin Dose 25 MG; Start 06/30/18 at 09:00 Quetiapine Fumarate (Seroquel) 50 mg HS PO Last administered on 07/04/18 21:47; Admin Dose 50 MG; Start 06/29/18 at 21:00 Cholecalciferol (Vitamin D) 10,000 unit DAILY PO Last administered on 07/07/18 09:25; Admin Dose 10,000 UNIT; Start 06/30/18 at 21:30 Vitamin B Complex/ Vitamin C (Berocca) 1 cap DAILY PO Last administered on 07/07/18 09:28; Admin Dose 1 CAP; Start 06/30/18 at 21:30 Hydromorphone HCl (Dilaudid) 3 mg Q4H PRN PO SEVERE PAIN LEVEL 7-10 Last administered on 07/07/18 14:22; Admin Dose 3 MG; Start 07/02/18 at 12:30 Lorazepam (Ativan) 1 mg Q4 PRN PO AGITATION/ANXIETY Last administered on 07/06/18 21:44; Admin Dose 1 MG; Start 07/03/18 at 16:00 Methadone HCl (Methadone Liq) 7 mg Q8H PO Last administered on 07/07/18 12:32; Admin Dose 7 MG; Start 07/04/18 at 04:00 Carisoprodol (Soma) 350 mg Q8H PRN PO MUSCLE SPASMS Last administered on 07/07/18 09:28; Admin Dose 350 MG; Start 07/04/18 at 09:30 Docusate Sodium (Colace) 100 mg DAILY PO Last administered on 07/07/18at 09:26; Admin Dose 100 MG; Start 07/06/18 at 22:30 Polyethylene Glycol (Miralax) 17 gm DAILY PO Last administered on 07/07/18at 09:29; Admin Dose 17 GM; Start 07/06/18 at 22:30 LILO MCDERMOTT MD July 07, 2018 16:17
[2018-07-07] MEDS: RIVAROXABAN 10 MG TABLET PO SCH (17:29)
[2018-07-07] MEDS: LORAZEPAM 1 MG TAB PO PRN ×2 (17:33→21:56)
--- NOTE | 2018-07-07 17:51 | PN ---
Date/Time of Note Date/Time of Note DATE: 07/07/18 TIME: 17:51 Assessment/Plan Lines/Catheters IV Catheter Type (from Nrsg): Peripheral IV Casanova in Place (from Nrsg): No Assessment/Plan Assessment/Plan Postop day # 8 status post left ankle tibial pilon and fibula open reduction internal fixation - Nonweightbearing to the left lower extremity - Dr Lainez for pain control who will give patient pain meds or from primary to bridge 1-2 days until patient see pain mgmt doctor - PCP mgmt of hep C - pt for GT - Social work/case mgmt consult for post op mgmt and home health - ok to DC home tomorrow and come to [facility] after discharge for cast placement - Xarelto for DVT prophx for 6 weeks - encourage to be nicotine Free - and explained to the patient that she is at a high risk for infection and possible loss of limb if she continues to smoke cigarettes or do Meth/Heroin -Nurse reports that patient has been wt bearing on the splint and unwrapping it on her own despite being told not to and patient again warned her non compliance could lead to infection and limb loss --- Godfrey Groves MD Subjective 24 Hr Interval Summary Patient in good mood this evening and reports her pain to be well controlled. Nurse reports that patient has been wt bearing on the splint and unwrapping it on her own despite being told not to. Patient seen by my fellow over the weekend who left paper note Exam/Review of Systems Vital Signs Vitals Vital Signs Date Temp Pulse Resp B/P (MAP) Pulse Ox O2 O2 Flow FiO2 Time Delivery Rate 07/07/18 99.1 104 18 117/69 98 04:26 (85) 07/03/18 Room Air 20:14 Intake and Output 07/06/18 07/06/18 07/07/18 1515:00 23:00 07:00 IntakeIntake Total 720 ml 400 ml 250 ml BalanceBalance 720 ml 400 ml 250 ml Exam Constitutional: alert, oriented, well developed Musculoskeletal: other (Left lower extremity-splint intact and bivalved Toes wiggle and capillary refill is brisk. Toes are warm and well-perfused. Sensation intact light touch to the medial, lateral, dorsal and plantar, first dorsal webspace distribution.) Results Result Diagram: 07/06/18 0700 07/06/18 0700 DC GROVES MD July 07, 2018 17:51
[2018-07-07 20:00] VITALS: BP 124/73; PULSE 107; RESP 19
[2018-07-08] MEDS: HYDROmorphONE 2 MG TAB PO PRN ×3 (01:11→11:21)
[2018-07-08 02:00] VITALS: BP 102/63; PULSE 102; RESP 18
[2018-07-08] MEDS: LORAZEPAM 1 MG TAB PO PRN ×2 (02:20→07:51)
[2018-07-08] MEDS: CARISOPRODOL 350 MG TAB PO PRN ×2 (02:20→11:20)
[2018-07-08] MEDS: METHADONE (1 MG/ML 5 ML PO UD SYG) PO SCH ×2 (04:15→11:21)
[2018-07-08] MEDS: VITAMIN B COMPLEX/VIT C CAP PO SCH (08:36)
[2018-07-08] MEDS: CHOLECALCIFEROL 2,000 UNIT CAP PO SCH (08:36)
[2018-07-08] MEDS: POLYETHYLENE GLYCOL 17 GM PACKET PO SCH (08:37)
[2018-07-08] MEDS: DOCUSATE SODIUM 100 MG CAP PO SCH (08:37)
[2018-07-08] MEDS: QUETIAPINE 25 MG TAB PO SCH (08:37)
[2018-07-08] MEDS: GABAPENTIN 300 MG CAP PO SCH ×2 (08:37→12:59)
[2018-07-08] MEDS: NICOTINE (14 MG/24 HR) PATCH TRANSDERM SCH (08:51)
[2018-07-08 11:23] VITALS: BP 129/83; PULSE 119; RESP 18
[2018-07-08] MEDS ORDERED: METHADONE 10 MG TAB PO ONE (11:30)
--- NOTE | 2018-07-08 13:58 | DS ---
Date/Time of Note Date/Time of Note DATE: 07/08/18 TIME: 13:57 Discharge Summary Admission/Discharge Info Admit Date/Time June 30, 2018 at 10:03 Discharge Date/Time July 08, 2018 at 13:30 Discharge Diagnosis Ankle fracture Patient Condition: Stable Hospital Course Patient underwent ORIF by Dr Cooper. Following this she worked with PT/OT to regain mobility. She requested opiates constantly. Seen by Dr Chavez who gave methadone and PO dilaudid. She was treated perioperatively with antibiotics. Discharge to a [facility] Home Meds Reported Medications Buspirone Hcl* (Buspirone Hcl*) 10 Mg Tab, 10 MG PO BID, TAB 06/29/18 Discontinued Reported Medications Cyclobenzaprine Hcl* (Cyclobenzaprine Hcl*) 10 Mg Tablet, 10 MG PO QHS PRN for MUSCLE SPASMS, #60 TAB 06/29/18 Primary Care Provider Not On Staff Doctor LILO MCDERMOTT MD July 08, 2018 13:58
== END 2018-07-08 13:30 | disposition home or self-care (01) | DRG 493 ==
LOC: SDS 06:17 → REC 08:00 → MS1 14:36 → OBSVTOIN 06-30 10:03 → MS1 07-03 18:42 → 5EC 07-04 18:25
PROVIDERS: ADMIT Orthopaedic Surgery; ATTEND Orthopaedic Surgery
PROC: 0QSK04Z Reposition Left Fibula with Internal Fixation Device, Open Approach (ICD-10-PCS; 2018-06-29)
PROC: 0SPG04Z Removal of Internal Fixation Device from Left Ankle Joint, Open Approach (ICD-10-PCS; 2018-06-29)
PROC: 0QSH04Z Reposition Left Tibia with Internal Fixation Device, Open Approach (ICD-10-PCS; principal; 2018-06-29 07:30)
DX: S82.872A Displaced pilon fracture of left tibia, initial encounter for closed fracture (principal); T84.84XA Pain due to internal orthopedic prosthetic devices, implants and grafts, initial encounter; F11.23 Opioid dependence with withdrawal; F10.239 Alcohol dependence with withdrawal, unspecified; S82.452A Displaced comminuted fracture of shaft of left fibula, initial encounter for closed fracture; F14.10 Cocaine abuse, uncomplicated; F15.10 Other stimulant abuse, uncomplicated; Z72.89 Other problems related to lifestyle; B19.20 Unspecified viral hepatitis C without hepatic coma; Z72.0 Tobacco use; Z59.0 Homelessness; R45.1 Restlessness and agitation; F41.9 Anxiety disorder, unspecified
CPT/HCPCS: 73610; 76705; 80048; 80053; 80202; 80307; 82306; 83735; 84100; 85025; 85610; 86703; 86803; 87081; 87340; 87522; 87536; 88300; 97116; 97161; 97530; C1713; G0378; J0690; J1100; J1170; J1200; J2060; J2175; J2250; J2405; J2710; J2795; J3010; J3370; J3411; J7030; J7050

== ENCOUNTER 2018-08-13 09:44 | Emergency (ER) | payer OTHER ==
[~2018-08-13] VITALS: Ht 157.5 cm; Wt 56.0 kg
[~2018-08-13 09:44] MED LIST changes: -ACET500C5 PO; +BUSP10TA2 PO; -CLIN300C10 PO; -HYDR-4011 PO; -IBUP-1542 PO
[2018-08-13 09:58] VITALS: Ht 157.5 cm; Wt 56.0 kg
[2018-08-13] MEDS ORDERED: CEPH-443 PO (10:12)
[2018-08-13] MEDS ORDERED: SULF1TAB31 PO (10:12)
[2018-08-13] MEDS ORDERED: GABA300C16 PO (10:12)
[2018-08-13] MEDS ORDERED: IBUP800T48 PO (10:26)
[2018-08-13] MEDS ORDERED: HYDROCODONE/APAP (10/325) TAB PO ONE (10:30)
[2018-08-13] MEDS ORDERED: TRIMETHOPRIM/SULFAMETHOX (DS) TAB PO ONE (10:30)
[2018-08-13] MEDS ORDERED: CEPHALEXIN 500 MG CAP PO ONE (10:30)
--- NOTE | 2018-08-13 10:33 | ERD ---
ER Documentation Chief Complaint Chief Complaint REFILL OF MEDS , POSSIBLE ABESS RIGHT AXILLA, CHEST CONTUSION? HPI 32-year-old female who presents to the emergency room complaining of right axilla pain. The patient recently had left foot surgery. She states that she ran out of her Dilaudid and needs a refill of her Dilaudid and gabapentin. She states that she lost her crutches and has been using a wheelchair that she found on the street. The patient is homeless. Patient does have a reported history of narcotic dependence. Patient is describing fullness and pain in the right axilla with associated raised warm tender areas. Pain is moderate, throbbing and worse to touch. She denies any chest pain, no pleuritic pain. ROS All systems reviewed and are negative except as per history of present illness. Medications Home Meds Active Scripts Ibuprofen* (Motrin*) 800 Mg Tab, 800 MG PO Q6H PRN for PAIN AND OR ELEVATED TEMP, #30 TAB Prov:CARMITA DIAZ MD 08/13/18 Cephalexin* (Keflex*) 500 Mg Capsule, 500 MG PO QID for 7 Days, CAP Prov:CARMITA DIAZ MD 08/13/18 Sulfamethoxazole/Trimethoprim* (Bactrim Ds* Tablet) 1 Each Tablet, 1 TAB PO BID, #14 TAB Prov:CARMITA DIAZ MD 08/13/18 Gabapentin* (Gabapentin*) 300 Mg Capsule, 300 MG PO TID for 14 Days, CAP Prov:CARMITA DIAZ MD 08/13/18 Reported Medications Buspirone Hcl* (Buspirone Hcl*) 10 Mg Tab, 10 MG PO BID, TAB 06/29/18 Allergies Allergies: Coded Allergies: No Known Allergy (Unverified , 06/29/18) PMhx/Soc History of Surgery: Yes (lt tibia foot with hardware) Anesthesia Reaction: No Hx Neurological Disorder: No Hx Respiratory Disorders: No Hx Cardiac Disorders: No Hx Psychiatric Problems: Yes (anxiety) Hx Alcohol Use: Yes Hx Substance Use: Yes Hx Tobacco Use: Yes Smoking Status: Current every day smoker FmHx Family History: No diabetes Physical Exam Vitals Vital Signs Date Temp Pulse Resp B/P (MAP) Pulse Ox O2 O2 Flow FiO2 Time Delivery Rate 08/13/18 98.1 67 18 112/67 99 09:58 (82) Physical Exam General: Well developed, well nourished, no acute distress Head: Normocephalic, atraumatic. Eyes: EOM intact ENT: Moist mucous membranes Neck: Full ROM Respiratory: No respiratory distress Cardiovascular: Well perfused distally Abdominal: Nondistended : Deferred MSK: No edema, no unilateral swelling, 5/5 strength Neurologic: Alert and oriented, moving all extremities, normal speech, left lower extremity in a cast with good capillary refill Skin: Right axilla with 2-3 areas of slight induration warmth but no fluctuance Psych: Normal mood Results 24 hrs Current Medications Medications Dose Sig/Suri Start Time Status Last (Trade) Ordered Route PRN Stop Time Admin Dose Reason Admin 1 tab ONCE ONCE 08/13/18 08/13/18 Acetaminophen PO 10:30 08/13/18 10:15 / 10:31 Hydrocodone Bitart ([place] (10/325)) 1 tab ONCE ONCE 08/13/18 08/13/18 Trimethoprim/ PO 10:30 08/13/18 10:15 10:31 Sulfamethoxaz ole (Bactrim (Ds)) Cephalexin 500 mg ONCE ONCE 08/13/18 08/13/18 (Keflex) PO 10:30 08/13/18 10:15 10:31 Procedures/MDM The patient's presentation is concerning for drug-seeking and narcotic dependence. Her presentation is consistent with asking for Dilaudid refill. The patient has a known history of narcotic dependence and electronic medical record is concerning for drug-seeking behavior. CAMILA care plan is additionally concerning for multiple visits. Clinical exam is consistent with mild hidradenitis suppurativa of the right axilla likely secondary to crutch use. Areas are indurated without fluctuance. I do not believe incision and drainage is necessary. Warm compresses and oral antibiotics will be reasonable. Return precautions were discussed and unders tood. I can refill the patient's gabapentin. She has follow-up with her orthopedic surgeon tomorrow. I cannot refill narcotic pain medication in the emergency room setting given the chronicity of the issue. Patient was given a single [place]. A combination of electronic medical record review, [facility]ES database review and patient behavior in the emergency room are concerning for drug-seeking and/or narcotic dependence behavior. In my opinion further use of IV or IM narcotics in this patient is not warranted unless clinical scenario changes. In addition, we should use caution prescribing chronic narcotic and/or benzodiazepine medica tions from the emergency room. A single provider should be dispensing this type of medication. The patient was informed. The patient does not have an identifiable emergent medical condition that warrants inpatient hospitalization at this time. The patient is deemed safe for discharge with outpatient follow-up. We discussed follow up with the patient's primary care doctor within 24 to 48 hours as needed. We also discussed return to the emergency room for worsening symptoms or worsening condition. Outpatient referral: None required Discharge Medications: Motrin, gabapentin, Bactrim, Keflex Departure Diagnosis: Primary Impression: Hidradenitis suppurativa of right axilla Additional Impression: Chronic pain Chronic pain type: other chronic pain Qualified Codes: G89.29 - Other chronic pain Condition: Stable Patient Instructions: Chronic Pain, Hidradenitis Suppurativa, Abx [facility]errals: [facility] YOU HAVE RECEIVED A MEDICAL SCREENING EXAM AND THE RESULTS INDICATE THAT YOU DO NOT HAVE A CONDITION THAT REQUIRES URGENT TREATMENT IN THE EMERGENCY DEPARTMENT. FURTHER EVALUATION AND TREATMENT OF YOUR CONDITION CAN WAIT UNTIL YOU ARE SEEN IN YOUR DOCTORS OFFICE WITHIN THE NEXT 1-2 DAYS. IT IS YOUR RESPONSIBILITY TO MAKE AN APPOINTMENT FOR FOLOW-UP CARE. IF YOU HAVE A PRIMARY DOCTOR --you should call your primary doctor and schedule an appointment IF YOU DO NOT HAVE A PRIMARY DOCTOR YOU CAN CALL OUR PHYSICIAN REFERRAL HOTLINE AT IF YOU CAN NOT AFFORD TO SEE A PHYSICIAN YOU CAN CHOSE FROM THE FOLLOWING [facility] [address] [facility] [address] [facility] [address] [facility] [address] [facility] [address] [facility]. [facility]. [address] [facility]. [facility] YOU HAVE RECEIVED A MEDICAL SCREENING EXAM AND THE RESULTS INDICATE THAT YOU DO NOT HAVE A CONDITION THAT REQUIRES URGENT TREATMENT IN THE EMERGENCY DEPARTMENT. FURTHER EVALUATION AND TREATMENT OF YOUR CONDITION CAN WAIT UNTIL YOU ARE SEEN IN YOUR DOCTORS OFFICE WITHIN THE NEXT 1-2 DAYS. IT IS YOUR RESPONSIBILITY TO MAKE AN APPOINTMENT FOR FOLOW-UP CARE. IF YOU HAVE A PRIMARY DOCTOR --you should call your primary doctor and schedule and appointment IF YOU DO NOT HAVE A PRIMARY DOCTOR YOU CAN CALL OUR PHYSICIAN REFERRAL HOTLINE AT . IF YOU CAN NOT AFFORD TO SEE A PHYSICIAN YOU CAN CHOSE FROM THE FOLLOWING [facility] INSTITUTIONS: [facility] [address] [place] [address] [facility] [address] [place] [address] [facility] [address] [place] [address] Additional Instructions: Call your primary care doctor TOMORROW for an appointment during the next 1 WEEK.Tell the attendance secretary that you were referred from this facility.See the doctor sooner or return here if your condition worsens before your appointment time. CARMITA DIAZ MD Aug 13, 2018 10:33
[2018-08-13 10:41] VITALS: BP 114/89; PULSE 80; RESP 20
== END 2018-08-13 11:03 | disposition home or self-care (01) ==
LOC: E/R 09:44
DX: L73.2 Hidradenitis suppurativa (principal); F17.210 Nicotine dependence, cigarettes, uncomplicated; G89.29 Other chronic pain
CPT/HCPCS: 93005; Z7502; Z7610